=== PATIENT | male | born 1955 | race Caucasian/White ===

== ENCOUNTER 2017-12-03 21:16 | Emergency (ER) | payer MEDICAID ==
[~2017-12-03] VITALS: Ht 170.2 cm; Wt 77.1 kg
[2017-12-03] MEDS ORDERED: SODIUM CHLORIDE 0.9% 1,000 ML IVB ONE (21:30)
[2017-12-03 21:54] LABS: Basophils # (auto) 0.1 uL; Basophils % (auto) 0.8 % (0.0-2.0); Eosinophils # (auto) 0.1 uL; Eosinophils % (auto) 1.6 % (0.0-7.0); Hematocrit 40.4 % (41.0-53.0); Hemoglobin 13.9 g/dL (13.5-17.5); Lymphocytes # (auto) 2.5 uL; Lymphocytes % (auto) 31.2 % (10.0-50.0); Mean Corpuscular Hemoglobin 33.5 pg (28.0-32.0); Mean Corpuscular Hgb Conc. 34.4 g/dL (32.0-36.0); Mean Corpuscular Volume 97.3 fL (80.0-100.0); Monocytes # (auto) 0.6 uL; Monocytes % (auto) 7.2 % (0.0-12.0); Neutrophils # (auto) 4.7 uL; Neutrophils % (auto) 59.2 % (37.0-80.0); Nucleated Red Blood Cells % 0.1 %; Platelet Count (auto) 180 10^3/uL (140-450); Red Blood Cells 4.15 10^6/uL (4.5-5.90); Red Cell Distribution Width 16.1 % (11.8-14.3)
[2017-12-03 22:05] LABS: Albumin 3.7 g/dL (3.4-5.0); BUN/Creatinine Ratio 7.4; Calcium 8.6 mg/dL (8.5-10.1); Potassium 3.8 mmol/L (3.5-5.1)
[2017-12-03 22:14] LABS: Bilirubin, Total 0.4 mg/dL (0.2-1.0); Total Protein 7.8 g/dL (6.4-8.2)
[2017-12-04] MEDS ORDERED: THIAMINE INJ 100 MG, MULTIPLE VITAMIN 10 ML, FOLIC ACID 1 MG, MAGNESIUM SULF SDV 50% 8 ... IV STA ×10 (01:18→01:25)
[2017-12-04 06:01] VITALS: BP 110/68
[2017-12-04] MEDS ORDERED: THIAMINE INJ 100 MG, MULTIPLE VITAMIN 10 ML, FOLIC ACID 1 MG, MAGNESIUM SULF SDV 50% 8 ... IV SCH ×10 (12:00)
== END 2017-12-04 01:51 | disposition home or self-care (01) ==
LOC: EDBD 21:16 → EDUNIT# 21:16 → ER 21:16
DX: S16.1XXA Strain of muscle, fascia and tendon at neck level, initial encounter (principal); I10 Essential (primary) hypertension; G92 Toxic encephalopathy; F10.129 Alcohol abuse with intoxication, unspecified; E87.1 Hypo-osmolality and hyponatremia; W18.39XA Other fall on same level, initial encounter; Y93.89 Activity, other specified; Y99.8 Other external cause status; Y92.89 Other specified places as the place of occurrence of the external cause
CPT/HCPCS: 36415; 70450; 71101; 72125; 80053; 80320; 85025; 96365; 99285; J3411; J3475; J7030; 93005

== ENCOUNTER 2019-09-17 09:56 | Inpatient (IN) | payer MEDICAID ==
[~2019-09-17] VITALS: Ht 182.9 cm; Wt 92.7 kg
[2019-09-17] MEDS ORDERED: SODIUM CHLORIDE 0.9% 1,000 ML IV ONE ×2 (10:33)
[2019-09-17 11:24] LABS: Basophils # (auto) 0 10 ^3/uL (0-0.2); Basophils % (auto) 0.1 % (0.0-2.0); Eosinophils # (auto) 0 10 ^3/uL (0-0.8); Hematocrit 32.2 % (41.0-53.0); Hemoglobin 10.9 g/dL (13.5-17.5); Lymphocytes # (auto) 0.4 10 ^3/uL (0.4-5.4); Mean Corpuscular Hgb Conc. 33.7 g/dL (32.0-36.0); Mean Corpuscular Volume 97.9 fL (80.0-100.0); Monocytes # (auto) 0.3 10 ^3/uL (0-1.3); Monocytes % (auto) 2.6 % (0.0-12.0); Neutrophils # (auto) 11.2 10 ^3/uL (1.6-8.6); Neutrophils % (auto) 94.3 % (37.0-80.0); Nucleated Red Blood Cells % 0.1 %; Platelet Count (auto) 101 10^3/uL (140-450); Red Blood Cells 3.29 10^6/uL (4.5-5.90); Red Cell Distribution Width 19.4 % (11.8-14.3); White Blood Cell 11.9 10^3/uL (4.4-10.8)
[2019-09-17 11:40] LABS: INR 1.16 (0.9-1.15); Partial Thromboplastin Time 36.5 sec (23.64-32.05)
[2019-09-17 11:41] LABS: Albumin 1.9 g/dL (3.4-5.0); Calcium 8.5 mg/dL (8.5-10.1); Potassium 3.7 mmol/L (3.5-5.1)
[2019-09-17 11:43] LABS: Lactic Acid w/Reflex 5.1 mmol/L (0.4-2.0)
[2019-09-17 11:47] LABS: BUN/Creatinine Ratio 26.7; Bilirubin, Total 0.8 mg/dL (0.2-1.0); Total Protein 6.4 g/dL (6.4-8.2)
[2019-09-17] MEDS ORDERED: cefTRIAXone 1GM/50ML D5W 50 ML IV ONE (12:15)
[2019-09-17] MEDS ORDERED: SODIUM CHLORIDE 0.9% 2,000 ML IV ONE (12:15)
[2019-09-17] MEDS ORDERED: AZITHROMYCIN 500MG/ 250ML 250 ML IV ONE (12:15)
[2019-09-17 14:21] LABS: Urine Bacteria NONE SEEN /hpf (None Seen); Urine Blood Negative /uL (Negative); Urine Hyaline Cast FEW /lpf (0 - 2); Urine Specific Gravity 1.018 (1.001-1.035); Urine WBC 1 /hpf (0 - 3)
[2019-09-17] MEDS ORDERED: ONDANSETRON HCL 4 MG/2 ML VIAL IV ONE (15:45)
[2019-09-17] MEDS ORDERED: MORPHINE SULFATE 4 MG/ML SYR/VIAL IV ONE (15:45)
[2019-09-17] MEDS ORDERED: IOHEXOL 350 MG/ML 100ML IJ ONE (17:13)
[2019-09-17] MEDS ORDERED: VANCOMYCIN PER PHARMACY 0 MG IV SCH (17:15)
[2019-09-17] MEDS ORDERED: NITROGLYCERIN 0.4 MG SL TAB SL PRN (17:15)
[2019-09-17] MEDS ORDERED: ALBUTEROL SULF 2.5 MG/0.5ML(0.5%) NEB SOLN NEB PRN (17:15)
[2019-09-17] MEDS ORDERED: LACTULOSE 20Gm/30ML SOLN PO PRN (17:15)
[2019-09-17] MEDS ORDERED: PIPERACILLIN-TAZOB 3.375GM 100 ML IV ONE (17:15)
[2019-09-17] MEDS ORDERED: PROMETHAZINE HCL 25 MG/ML 1ML IV PRN (17:15)
[2019-09-17] MEDS ORDERED: ACETAMINOPHEN 500 MG TAB PO PRN (17:15)
[2019-09-17] MEDS ORDERED: methylPREDNISolone SOD SUCC 125 MG/2 ML VL IV ONE (17:15)
[2019-09-17] MEDS ORDERED: levoFLOXacin 500MG 100 ML IV ONE (17:15)
[2019-09-17] MEDS ORDERED: VANCOMYCIN 1GM/250ML 250 ML IV ONE (17:45)
[2019-09-17] MEDS: SODIUM CHLORIDE 0.9% 1,000 ML IV SCH (18:19)
[2019-09-17 18:26] LABS: Hematocrit 26.6 % (41.0-53.0)
[2019-09-17] MEDS: ALBUTEROL SULF 2.5 MG/0.5ML(0.5%) NEB SOLN NEB SCH (18:28)
[2019-09-17] MEDS: IPRATROPIUM BROM 0.5 MG/2.5ML INH SOL NEB SCH (18:28)
[2019-09-17 18:44] VITALS: BP 150/71
[2019-09-17 19:49] LABS: Alcohol, Urine < 3.0 mg/dL (0-5); Amphetamine Screen, Urine NEGATIVE (NEGATIVE); Barbiturate Scree,Urine NEGATIVE (NEGATIVE); Benzodiazephine Screen, Urine NEGATIVE (NEGATIVE); Cannabinoid Screen, Urine NEGATIVE (NEGATIVE); Cocaine Screen, Urine NEGATIVE (NEGATIVE); Opiate Scree,Urine NEGATIVE (NEGATIVE); Phencyclidine Screen, Urine NEGATIVE (NEGATIVE)
[2019-09-18] VITALS (8 sets, daily range): BP systolic 105–172; BP diastolic 55–88
[2019-09-18] MEDS: IPRATROPIUM BROM 0.5 MG/2.5ML INH SOL NEB SCH ×4 (00:17→22:26)
[2019-09-18] MEDS: ALBUTEROL SULF 2.5 MG/0.5ML(0.5%) NEB SOLN NEB SCH ×4 (00:17→22:26)
[2019-09-18 00:39] LABS: Hematocrit 28.6 % (41.0-53.0); Hemoglobin 9.5 g/dL (13.5-17.5)
--- NOTE | 2019-09-18 01:05 | NUR ---
[facility]mit to [facility] to [facility] via gurney on cardiac rehab nurse, and portable 02. Patient transfered to bed, connected to unit monitoring and oxygen, and weighed by bedscale. Patient oriented to Michael Hare, primary RN, unit, room, bed, and unit policies regarding patient care and visiting hours. All questions and concerns addressed, patient verbalized understanding.PHYSICAL assessment charted under interventions. NOTE:
[2019-09-18] MEDS: SODIUM CHLORIDE 0.9% 1,000 ML IV SCH ×3 (03:10→15:33)
--- NOTE | 2019-09-18 03:20 | NUR ---
PT SLEEPING BREATHING UNLABORED. CALL LIGHT WITHIN REACH.
--- NOTE | 2019-09-18 05:13 | NUR ---
GROUNDSKEEPER AT BEDSIDE. PT ALERT AND WILL CONTINUE TO MONITOR.
[2019-09-18] MEDS: methylPREDNISolone SOD SUCC 40 MG/ML VL IV SCH ×4 (05:28→20:50)
[2019-09-18] MEDS: VANCOMYCIN 1GM/250ML 250 ML IV SCH ×2 (05:28→17:11)
[2019-09-18] MEDS: PIPERACILLIN-TAZOB 3.375GM 100 ML IV SCH ×5 (06:00→23:08)
[2019-09-18 06:06] LABS: Basophils # (auto) 0 10 ^3/uL (0-0.2); Basophils % (auto) 0.2 % (0.0-2.0); Eosinophils # (auto) 0 10 ^3/uL (0-0.8); Hematocrit 25.8 % (41.0-53.0); Hemoglobin 9.1 g/dL (13.5-17.5); Lymphocytes # (auto) 0.2 10 ^3/uL (0.4-5.4); Lymphocytes % (auto) 3.4 % (10.0-50.0); Mean Corpuscular Hemoglobin 34.3 pg (28.0-32.0); Mean Corpuscular Hgb Conc. 35.2 g/dL (32.0-36.0); Mean Corpuscular Volume 97.5 fL (80.0-100.0); Monocytes # (auto) 0.1 10 ^3/uL (0-1.3); Monocytes % (auto) 1.5 % (0.0-12.0); Neutrophils # (auto) 5.2 10 ^3/uL (1.6-8.6); Neutrophils % (auto) 94.9 % (37.0-80.0); Platelet Count (auto) 78 10^3/uL (140-450); Red Blood Cells 2.65 10^6/uL (4.5-5.90); Red Cell Distribution Width 19.6 % (11.8-14.3); White Blood Cell 5.5 10^3/uL (4.4-10.8)
--- NOTE | 2019-09-18 06:09 | NUR ---
Respiratory note: PER CONNOR MONTGOMERY PT O2 WAS INCREASED FROM 2 L TO 6 L ABOUT 30 MIN PRIOR TO THIS RT INITIATING BREATHING TX @ 0604. WILL CONTINUE TO MONITOR PT AND KEEP SPO2 > 92%.
[2019-09-18 06:16] LABS: Potassium 3.4 mmol/L (3.5-5.1)
[2019-09-18 06:21] LABS: Albumin 1.5 g/dL (3.4-5.0); BUN/Creatinine Ratio 21.3; Calcium 7.6 mg/dL (8.5-10.1)
[2019-09-18 06:24] LABS: Bilirubin, Total 0.4 mg/dL (0.2-1.0); Total Protein 5.7 g/dL (6.4-8.2)
--- NOTE | 2019-09-18 06:48 | NUR ---
k level 3.4 this morning. hospitalist paged.
--- NOTE | 2019-09-18 07:30 | NUR ---
RECEIVED PATIENT SEMI FOWLERS IN BED, A/O TIMES 4, O2 AT 2L BY N/C, TURNED PATIENT IN THE BED WITH THE NOC SHIFT NURSE AND HIS O2 LEVEL DROPPED TO THE 80'S, O2 TURNED UP TO THE UP TO 5L, CARLSON TO GRAVITY, NS INFUSING INTO THE LAC 18G BY THE IV PUMP AT 100ML/HR,
--- NOTE | 2019-09-18 07:35 | NUR ---
O2 INCREASED BACK TO THE 90'S AND O2 DECREASED TO 2L BY N/C, PATIENT APPEARS TO DESAT WITH MOVEMENT
--- NOTE | 2019-09-18 07:40 | NUR ---
ENDORSED CARE TO DAY NURSE PT AWAKE. REPOSITIONED AND CALL LIGHT WITHIN REACH.
[2019-09-18] MEDS ORDERED: POTASSIUM CHL 20 Meq TABLET PO ONE ×2 (07:45→14:00)
--- NOTE | 2019-09-18 08:30 | NUR ---
WOKE PATIENT UP TO EAT BUT HE STATED HE WOULD EAT LATER HE IS REALLY TIRED
--- NOTE | 2019-09-18 09:29 | NUR ---
LYING IN BED WITH EYES CLOSED APPEARS TO BE SEEPING
[2019-09-18] MEDS ORDERED: levoFLOXacin 500MG 100 ML IV SCH (10:00)
--- NOTE | 2019-09-18 10:10 | NUR ---
WOKE PATIENT UP TO GIVE HIM HIS MEDICATIONS, EXPLAIN MEDICATIONS TO THE PATIENT REGARDING THE DOSAGE, USAGE AND THE SIDE EFFECTS, PATIENT VERBALIZED THAT HE UNDERSTOOD AND MEDS TAKEN ORDERED, BUT PATIENT CHOKED ON HALF OF A POTASSIUM PILL BUT EVENTUALLY GOT IT SWALLOWED ASK IF HE FELT LIKE ANYTHING WENT INTO HIS LUNGS AND STATED NO, SAYS HE COUGHED UP A LOT OF SPUTUM AND SPIT IT OUT
[2019-09-18] MEDS: PANTOPRAZOLE 40 MG TAB PO SCH (10:12)
--- NOTE | 2019-09-18 10:12 | NUR ---
PATIENT REFUSED PAIN MEDICATION WHEN OFFERED
--- NOTE | 2019-09-18 10:51 | NUR ---
ECHO BEING DONE
--- NOTE | 2019-09-18 11:15 | NUR ---
WOUND CARE NURSE IN TO SEE THE PATIENT AND TAKE PICTURES OF HIS WOUNDS
--- NOTE | 2019-09-18 11:30 | NUR ---
WOUND CARE NOTE: Wound care in to see patient per wound care request regarding multiple sores/lesions that are noted present on admission. Patient is 63 years old male with admitting diagnosis of Pneumonia,Pulmonary Edema, Possible Pulmonary hemorrhage. Patient is resting in SDU bed in Rm. 265. He's awake, alert and fully oriented. Patient reports of pain in every move. He's able to assist in turning and repositioning. His Daniel score is 14. Patent noted with multiple scabbed and open blisters all over his body. Some are scabbed and dry blister to his Rt lateral chest, arms, legs and feet. There's also dry red scattered lesion to his upper, medial and lower back. Multi open blisters noted to his bilateral buttocks and thighs with minimal serosanguineous drainage, no odor noted. Patient reported that he has had the wounds about "couple of weeks" history of David Kiran's Disease. Photograph of patient's wounds are taken for reference. Cleansed multiple open blisters to patient's buttocks and thighs and covered with Xeroform dressing. Applied new breathable care pads. Patient tolerated well. Patient offered with air mattress and wound care education provided. Patient refused and states that " I had those bed in [facility] and I don't like it". Patient education provided regarding benefits of air bed, but still refused. RN Brandi at bedside and aware. RECOMMENDATION: Daily/PRN dressing change to multi open wounds/blisters per MD order, Dietary consult for wounds, frequent turning and repositioning schedule as condition permits, redistribute pressure points with pillows, continue monitoring by wound care while patient is hospitalized. Addendum: 09/18/19 at 1339 by Ynes Dubon RN Amended: Links added.
--- NOTE | 2019-09-18 11:45 | NUR ---
Respiratory note: WOUND CARE WITH PT, UNABLE TO GIVE BREATHING TX AT THIS TIME. WILL TRY AGAIN LATER.
[2019-09-18] MEDS: traMADol HCL 50 MG TAB PO PRN ×3 (11:56→20:47)
--- NOTE | 2019-09-18 11:56 | NUR ---
MEDICATED FOR PAIN 12/08 WITH ULTRAM PO
--- NOTE | 2019-09-18 13:00 | NUR ---
DR BEATTY CALLED AND STATED TO MOVE THE PATIENT TO A NEGATIVE ISOLATION ROOM AND TO DO THE FREED VIRUS TEST
[2019-09-18] MEDS ORDERED: FUROSEMIDE 40 MG/4 ML VIAL IV ONE ×2 (13:15)
--- NOTE | 2019-09-18 13:40 | NUR ---
Respiratory note: SCHEDULED MED NEB TX NOT GIVEN DUE TO THIS RT BEING AT A . WILL CONTINUE TO MONITOR PT AND CONTINUE MED NEB TX'S ORDERED.
[2019-09-18] MEDS ORDERED: FUROSEMIDE 100 MG/10ML VIAL IV ONE (14:45)
--- NOTE | 2019-09-18 14:50 | NUR ---
REPORT GIVEN TO PAUL RYAN
--- NOTE | 2019-09-18 15:05 | NUR ---
PATIENT MOVED TO ROOM 261 NEGATIVE PRESSURE ROOM,
--- NOTE | 2019-09-18 15:06 | NUR ---
INFLUENZA A & B SWAB SENT. STREP SWAB SENT TO THE LAB.
--- NOTE | 2019-09-18 15:25 | NUR ---
assessment Patient is a 63 year old male who is alert and oriented. Prior to admission patient lived with a friend in a converted aul. Per patient they park the uhaul at the truck stop and have heat and lights. Per patient they have food, showers, bathroom and the truckers help them when needed. Patient does not consider himself homeless. I have offered patient homeless resources and usp. Patient has refused. Per patient he will return to his prior living arrangements post discharge. Patient does have a fww for home use. Patients PCP is Dr Perez. Patient feels safe returning to his prior living arrangements. I informed patient he has a right to speak to a social professionals regarding all care. I informed patient he has a right to participate in any and all discharge planning. Patient does not have a POA and advanced directive. I have offered patient information on POA and advanced directives. I informed the patient the advantages and benefits of having an Advanced Directive. Patient verbalized understanding and agreed to discharge plan. Addendum: 09/18/19 at 1533 by Elaine LIRA Amended: Links added.
--- NOTE | 2019-09-18 15:34 | NUR ---
SPOKE WITH MERY AND STATED SHE WOULD GET SOMEONE TO COME AND DO THE FREED VIRUS TESTING ON THE PATIENT
[2019-09-18] MEDS ORDERED: TIZA4CAP13 PO (16:50)
[2019-09-18] MEDS ORDERED: SERT-274 PO (16:51)
[2019-09-18] MEDS ORDERED: GABA300C10 PO (16:52)
[2019-09-18] MEDS ORDERED: PERCOT PO (16:53)
[2019-09-18] MEDS ORDERED: CYCL10TA6 PO (16:54)
[2019-09-18] MEDS ORDERED: ROPI1TAB2 PO (16:59)
[2019-09-18] MEDS: guaiFENesin-DM 100/10mg/5ml SYR PO PRN (20:47)
[2019-09-18] MEDS: ATORVASTATIN 20 MG TAB PO SCH (20:47)
[2019-09-18] MEDS: METOPROLOL TARTRATE 25 MG TAB PO SCH ×2 (20:48→23:08)
[2019-09-18] MEDS: TEMAZEPAM 15 MG CAP PO PRN (20:50)
--- NOTE | 2019-09-19 | NUR ---
Pt IV keeps alarming due to position of site. New IV started to left hand, 22g and is now infusing. Pt tolerated well. Noted right arm has some swelling. Will continue to monitor.
[2019-09-19] MEDS: traMADol HCL 50 MG TAB PO PRN ×3 (00:56→08:39)
[2019-09-19 04:00] VITALS: BP 158/62
--- NOTE | 2019-09-19 04:00 | NUR ---
Noted pt having pain. Also having desat issues. Repositioned nasal canula, encouraged to breath through nose and out through mouth. Sats still down to 88, called RT. Sats back up to normal by the time RT came. Oxymizer left for RN incase pt has further issues. Pain medication given per request. Will continue to monitor.
--- NOTE | 2019-09-19 04:42 | NUR ---
Opening Shift Note Assumed care of patient, awake and alert. No S/S of distress/SOB or severe pain. Instructed on POC and to call for assist PRN, will continue to monitor for changes and PRN. Pt educated on turning, positioning of arm for IV, and isolation precautions.
[2019-09-19] MEDS ORDERED: FUROSEMIDE 40 MG/4 ML VIAL IV SCH (06:00)
[2019-09-19] MEDS: PIPERACILLIN-TAZOB 3.375GM 100 ML IV SCH ×3 (06:00→17:32)
[2019-09-19] MEDS: VANCOMYCIN 1GM/250ML 250 ML IV SCH ×2 (06:36→16:52)
[2019-09-19 06:54] LABS: Basophils # (auto) 0 10 ^3/uL (0-0.2); Eosinophils # (auto) 0 10 ^3/uL (0-0.8); Hemoglobin 8.4 g/dL (13.5-17.5); Lymphocytes # (auto) 0.3 10 ^3/uL (0.4-5.4); Mean Corpuscular Hgb Conc. 34.3 g/dL (32.0-36.0); Monocytes # (auto) 0.2 10 ^3/uL (0-1.3); Neutrophils # (auto) 5.6 10 ^3/uL (1.6-8.6); Nucleated Red Blood Cells % 0.1 %; White Blood Cell 6.2 10^3/uL (4.4-10.8)
[2019-09-19 06:56] LABS: Basophils % (auto) 0.1 % (0.0-2.0); Hematocrit 24.5 % (41.0-53.0); Lymphocytes % (auto) 5.3 % (10.0-50.0); Mean Corpuscular Hemoglobin 33.4 pg (28.0-32.0); Mean Corpuscular Volume 97.3 fL (80.0-100.0); Monocytes % (auto) 3.1 % (0.0-12.0); Neutrophils % (auto) 91.5 % (37.0-80.0); Platelet Count (auto) 77 10^3/uL (140-450); Red Blood Cells 2.52 10^6/uL (4.5-5.90); Red Cell Distribution Width 18.9 % (11.8-14.3)
[2019-09-19 07:15] LABS: Albumin 1.8 g/dL (3.4-5.0); Calcium 7.8 mg/dL (8.5-10.1); Magnesium 1.9 mg/dL (1.6-2.6)
[2019-09-19 07:19] LABS: Bilirubin, Total 0.4 mg/dL (0.2-1.0); Total Protein 5.5 g/dL (6.4-8.2)
[2019-09-19 07:21] LABS: INR 1.2 (0.9-1.15)
[2019-09-19] MEDS: ALBUTEROL SULF 2.5 MG/0.5ML(0.5%) NEB SOLN NEB SCH ×3 (07:25→22:14)
[2019-09-19] MEDS: IPRATROPIUM BROM 0.5 MG/2.5ML INH SOL NEB SCH ×3 (07:25→22:14)
[2019-09-19 07:32] LABS: Potassium 2.9 mmol/L (3.5-5.1)
[2019-09-19 07:40] VITALS: BP 179/79
[2019-09-19] MEDS: SODIUM CHLORIDE 0.9% 1,000 ML IV SCH (07:55)
--- NOTE | 2019-09-19 08:15 | NUR ---
Opening Shift Note Assumed care of patient, awake and alert, lying on the bed after cleaning, changing linen. No S/S of distress/SOB, on O2 NC 5 LPM, pain when moving or touching, pain medication given by strip tank tendershift production associate. Instructed on POC and to call for assist PRN, will continue to monitor for changes Q1hr and PRN. Patient contact isolation for +MRSA NARES, and Droplet isolation in negative pressure room for R/O Covid-19, pending the result, patient made aware about the plan.
--- NOTE | 2019-09-19 08:39 | NUR ---
Pt pulled out IV just before change of shift and vanco did not infuse and leaked into bedding. New IV placed by Mau RN. Linens changed and xeroform dressing in place to buttocks. New vanco infusing. Report given to AM shift, care endorsed.
--- NOTE | 2019-09-19 08:40 | NUR ---
Potassium 2.9, gave potassium 25 mEq as schedule, will call MD for lab result.
--- NOTE | 2019-09-19 08:50 | NUR ---
IV insertion IV access obtained, via clean sterile technique by inserting 22 gauge catheter at right forearm after 1 attempt. IV secured properly. No trauma to site. Patient tolerated procedure well.
[2019-09-19] MEDS: PANTOPRAZOLE 40 MG TAB PO SCH (09:24)
[2019-09-19] MEDS: methylPREDNISolone SOD SUCC 40 MG/ML VL IV SCH ×2 (09:24→20:58)
[2019-09-19] MEDS: ASPirin-EC 81 mg tab PO SCH (09:25)
[2019-09-19] MEDS: METOPROLOL TARTRATE 25 MG TAB PO SCH ×2 (09:25→20:56)
--- NOTE | 2019-09-19 09:45 | NUR ---
Assist patient with breakfast, patient had a couple bit of bread and milk, refused to finish the rest, stated that will try later. No N/V noted.
[2019-09-19] MEDS ORDERED: POTASSIUM EFFERVESENT TAB 25 MEQ GT SCH (10:00)
[2019-09-19] MEDS ORDERED: FUROSEMIDE 20 MG/2 ML VIAL IV SCH (10:00)
--- NOTE | 2019-09-19 10:15 | NUR ---
Patient went back to bed by holding walker and push himself back to bed, lying on the bed, tolerated well. Patient agreed with the plan that will sit on the chair for Lunch, HR 110/min, room air O2 saturation 100%, RR 16-20/min, no coughing, N/V noted.
--- NOTE | 2019-09-19 10:36 | NUR ---
Paged Dr. Dunn and Dr. Gomes, waiting MD to call back. Regarding IV, Lasix, and Lab result. Per Supervisor Ornamental Ironworking, Dr. Ramirez covered for Dr. Dunn. Will wait Dr. Gomes to call back.
--- NOTE | 2019-09-19 11:29 | NUR ---
Dr. Gomes at the bedside, informed MD about lab results and recommendation from Dr. Dunn, received order for Potassium 40 mEq oral, continue Lasix 40 mg IV BID, off IV hydration, changed pain medication to Percocet. MD reviewed Document from [facility]. Patient made aware about the plan of care and new orders.
[2019-09-19] MEDS ORDERED: POTASSIUM CHL 20 Meq TABLET PO ONE ×2 (11:30→18:00)
[2019-09-19] MEDS ORDERED: FUROSEMIDE 100 MG/10ML VIAL IV ONE (11:30)
[2019-09-19 11:58] VITALS: BP 170/69
--- NOTE | 2019-09-19 12:00 | NUR ---
Percocet given for pain management, still cannot turn position due to severe pain, will wait until Percocet kick in. No N/V noted, patient had 50% of Oatmeal, 1 cup of apple sauce. Will continue to monitor and care.
--- NOTE | 2019-09-19 12:10 | NUR ---
Reverberatory Furnace Operator at the beside, made aware that patient didn't bring Denture with him, recommend Vitamin C 500 mg PO BID and Multi vitamin PO Daily for nutrition and wound healing, will carlos diet to mechanical soft and chopped fine, will continue to monitor for nutrition intake.
[2019-09-19] MEDS: OXYCODONE W/ ACETAMINOPHEN 5/325MG TABLET PO PRN ×3 (12:12→20:55)
[2019-09-19] MEDS: MULTIPLE VITAMIN TAB PO SCH (12:23)
--- NOTE | 2019-09-19 12:30 | NUR ---
Patient able to take a nap after Percocet given, HR 65-75 /min, BP 164/65 mmHg, will continue to monitor and care.
--- NOTE | 2019-09-19 13:20 | NUR ---
SBP 160-180 mmHg, DBP 60-70 mmHg, paged Dr. Gomes to call back regarding High BP.
--- NOTE | 2019-09-19 13:42 | NUR ---
Dr. Washington at the bedside, still waiting for the Covid-19 result, will continue treatment and monitor.
[2019-09-19] MEDS ORDERED: hydrALAZINE HCL 20 MG/ML VL IV PRN (13:45)
--- NOTE | 2019-09-19 14:13 | NUR ---
Nutrition Assessment Notes Please refer to link for full assessment notes. Est energy needs: 5729-6399 kcals (23-25 kcal/kgBW) Est protein needs: 102-127 gms/day (1.2-1.5 gm/kgBW) d/t pt wounds Will continue to monitor and reassess prn. Addendum: 09/19/19 at [address] Amended: Links added.
--- NOTE | 2019-09-19 14:25 | NUR ---
Patient took IV at left AC out, no bleeding noted. IV insertion IV access obtained, via clean sterile technique by inserting 22 gauge catheter at left forearm after 1 attempt. IV secured properly. No trauma to site. Patient tolerated procedure well.
--- NOTE | 2019-09-19 14:30 | NUR ---
Assisted patient with Lunch, patient had 1 orange juice and 5 bites of mash potato and soup.
--- NOTE | 2019-09-19 14:48 | NUR ---
BP 110/56 mmHg after Hydralazine given as ordered for SBP>150 mmHg, will continue to monitor and care.
[2019-09-19 15:53] VITALS: BP 118/54
[2019-09-19] MEDS: FUROSEMIDE 100 MG/10ML VIAL IV SCH (17:33)
--- NOTE | 2019-09-19 17:56 | NUR ---
Paged Hospitalist finance consultant for Potassium 3.1, waiting MD to call back.
[2019-09-19] MEDS ORDERED: POTASSIUM CHL 10 Meq TABLET PO ONE (18:00)
--- NOTE | 2019-09-19 18:00 | NUR ---
Received a call back from Dr. Prasad, informed ND for potassium 3.1, received order for potassium 50 mEq PO once, will carry out, patient made aware.
--- NOTE | 2019-09-19 18:31 | NUR ---
Dinner tray provided, assisted with dinner, patient had 1 cup of pudding, 10 bites of dinner tray, no N/V noted, stated that doesn't like the food on the tray because it tasted less.
[2019-09-19 20:00] VITALS: BP 111/53
[2019-09-19] MEDS: guaiFENesin-DM 100/10mg/5ml SYR PO PRN (20:55)
[2019-09-19] MEDS: ASCORBIC ACID 500 MG TAB PO SCH (20:57)
[2019-09-19] MEDS: ATORVASTATIN 20 MG TAB PO SCH (20:57)
[2019-09-19] MEDS: MUPIROCIN 2% OINT 15gm or 22gm EACHNOSTRI SCH (20:58)
[2019-09-19] MEDS: POTASSIUM CHL 20 Meq TABLET PO SCH (20:58)
[2019-09-19] MEDS: TEMAZEPAM 15 MG CAP PO PRN (20:59)
[2019-09-20] VITALS: BP 150/57
[2019-09-20] MEDS: PIPERACILLIN-TAZOB 3.375GM 100 ML IV SCH ×5 (01:18→23:41)
[2019-09-20] MEDS: OXYCODONE W/ ACETAMINOPHEN 5/325MG TABLET PO PRN ×5 (01:18→21:17)
[2019-09-20 04:00] VITALS: BP 150/57
[2019-09-20] MEDS: VANCOMYCIN 1GM/250ML 250 ML IV SCH ×2 (05:08→17:35)
[2019-09-20] MEDS: FUROSEMIDE 100 MG/10ML VIAL IV SCH ×2 (05:09→17:30)
[2019-09-20] MEDS: ALBUTEROL SULF 2.5 MG/0.5ML(0.5%) NEB SOLN NEB SCH ×3 (06:54→22:31)
[2019-09-20] MEDS: IPRATROPIUM BROM 0.5 MG/2.5ML INH SOL NEB SCH ×3 (06:54→22:31)
--- NOTE | 2019-09-20 07:00 | NUR ---
Pt states does not feel well today and feels worse than when he arrived. Severe pain to buttocks and legs. Specialty bed recommended for wound care consult. Unable to draw labs, multiple tries. Midline requested and ordered, no PICC line nurse automotive fuel systems converter today. Labs endorsed to AM shift, care endorsed. New Xeroform applied to buttocks, skin open and bleeding underneath. Pt has severe pain and even worse with screaming when being turned. Report given to AM shift, care endorsed.
--- NOTE | 2019-09-20 07:12 | NUR ---
Respiratory note: TITRATED FIO2 TO 2L.
--- NOTE | 2019-09-20 07:30 | NUR ---
REPORT RECEIVED ASSUMING CARE
[2019-09-20 07:50] VITALS: BP 128/61
--- NOTE | 2019-09-20 09:30 | NUR ---
ASSESSMENT COMPLETED, LABS DRAWN AND SENT TO LAB
--- NOTE | 2019-09-20 09:40 | NUR ---
REFUSED TO BE TURNED AT THIS TIME DUE TO PAIN C/O 12/08. PERCOCET GIVEN WITH AM MEDS. WILL CONT TO ENCOURAGE REPOSITIONING TO PREVENT FURTHER SKIN BREAKDOWN
[2019-09-20] MEDS: PANTOPRAZOLE 40 MG TAB PO SCH (09:41)
[2019-09-20] MEDS: POTASSIUM CHL 20 Meq TABLET PO SCH ×2 (09:41→21:16)
[2019-09-20] MEDS: MUPIROCIN 2% OINT 15gm or 22gm EACHNOSTRI SCH ×2 (09:41→21:18)
[2019-09-20] MEDS: ASCORBIC ACID 500 MG TAB PO SCH ×2 (09:41→21:11)
[2019-09-20] MEDS: methylPREDNISolone SOD SUCC 40 MG/ML VL IV SCH (09:41)
[2019-09-20] MEDS: MULTIPLE VITAMIN TAB PO SCH (09:41)
[2019-09-20] MEDS: ASPirin-EC 81 mg tab PO SCH (09:41)
[2019-09-20] MEDS: METOPROLOL TARTRATE 25 MG TAB PO SCH ×2 (09:42→21:16)
[2019-09-20 09:43] LABS: Basophils # (auto) 0 10 ^3/uL (0-0.2); Basophils % (auto) 0.1 % (0.0-2.0); Eosinophils # (auto) 0 10 ^3/uL (0-0.8); Hemoglobin 9.6 g/dL (13.5-17.5); Lymphocytes # (auto) 0.4 10 ^3/uL (0.4-5.4); Lymphocytes % (auto) 4.8 % (10.0-50.0); Mean Corpuscular Hemoglobin 33.1 pg (28.0-32.0); Mean Corpuscular Hgb Conc. 34.2 g/dL (32.0-36.0); Mean Corpuscular Volume 96.9 fL (80.0-100.0); Monocytes # (auto) 0.4 10 ^3/uL (0-1.3); Monocytes % (auto) 4.3 % (0.0-12.0); Neutrophils # (auto) 7.7 10 ^3/uL (1.6-8.6); Neutrophils % (auto) 90.8 % (37.0-80.0); Platelet Count (auto) 94 10^3/uL (140-450); Red Blood Cells 2.89 10^6/uL (4.5-5.90); Red Cell Distribution Width 19.1 % (11.8-14.3); White Blood Cell 8.4 10^3/uL (4.4-10.8)
--- NOTE | 2019-09-20 10:00 | NUR ---
DR BEATTY AT BEDSIDE NO NEW ORDERS, AWARE LABS WERE JUST DRAWN BY RN AND SENT TO LAB
[2019-09-20 10:05] LABS: Albumin 2.1 g/dL (3.4-5.0); Calcium 8.2 mg/dL (8.5-10.1); Potassium 3.5 mmol/L (3.5-5.1)
[2019-09-20 10:08] LABS: BUN/Creatinine Ratio 23.8; Bilirubin, Total 0.6 mg/dL (0.2-1.0); Total Protein 6.1 g/dL (6.4-8.2)
[2019-09-20] MEDS ORDERED: MAGNESIUM SULFATE 1GM/100ML 100 ML IV ONE (11:15)
--- NOTE | 2019-09-20 11:20 | NUR ---
PER DR BEATTY KEEP NPO AFTER MIDNIGHT FOR POSSIBLE STRESS TEST IN AM
[2019-09-20 11:50] VITALS: BP 141/57
--- NOTE | 2019-09-20 12:10 | NUR ---
RN REPOSITIONED PATIENT ON RIGHT SIDE SLIGHTLY WITH PILLOW UNDER LOWER BACK/BUTTOCKS, PATIENT REFUSED COMPLETE TURN.
--- NOTE | 2019-09-20 13:40 | NUR ---
PAIN MEDICINE GIVEN FOR C/O 02/07 PAIN "EVERYWHERE" Addendum: 09/20/19 at 1619 by Espinoza Mcclellan RN REFUSED TO TURN AT THIS TIME
--- NOTE | 2019-09-20 15:30 | NUR ---
ATTEMPTED TO REFUSE TURN BUT RN EDUCATED PATIENT ON PREVENTING FURTHER SKIN BREAKDOWN. PATIENT AGREED TO TURN AND TOLERATED FAIRLY AFTER TURNING ON RIGHT SIDE.
[2019-09-20 15:40] VITALS: BP 113/42
--- NOTE | 2019-09-20 17:40 | NUR ---
PAIN MEDICINE GIVEN ORDERED FOR C/O 10/08 PAIN
[2019-09-20 20:00] VITALS: BP 153/54
[2019-09-20] MEDS: ATORVASTATIN 20 MG TAB PO SCH (21:16)
[2019-09-20] MEDS: TEMAZEPAM 15 MG CAP PO PRN (21:17)
--- NOTE | 2019-09-20 22:31 | NUR ---
Respiratory note: at bedside for med claudette hurd.
[2019-09-20] MEDS ORDERED: MORPHINE SULF INJ 2 MG/ML SYRINGE 1ML IV PRN (23:15)
[2019-09-20] MEDS: MORPHINE SULF INJ 2 MG/ML SYRINGE 1ML IV PRN (23:41)
[2019-09-21] VITALS (7 sets, daily range): BP systolic 114–136; BP diastolic 52–66
--- NOTE | 2019-09-21 02:33 | NUR ---
Pt remains stable this shift. However, pt has severe pain. Small movements on his own in bed. Encouraged to move and change positions as much as possible. Refuses turning from staff. Pt educated on pressure ulcers and prevention. AM shift informed me that pt refused specialty bed previously. Pt now states he would accept the special bed but ui programmer was not aware that he had changed his mind. Will inform ui programmer in AM about needing new mattress for the David Kiran Syndrome skin issues. Will continue to monitor.
[2019-09-21] MEDS: OXYCODONE W/ ACETAMINOPHEN 5/325MG TABLET PO PRN ×3 (02:52→20:57)
[2019-09-21] MEDS: MORPHINE SULF INJ 2 MG/ML SYRINGE 1ML IV PRN (04:42)
[2019-09-21] MEDS: PIPERACILLIN-TAZOB 3.375GM 100 ML IV SCH ×4 (06:49→23:42)
[2019-09-21] MEDS: VANCOMYCIN 1GM/250ML 250 ML IV SCH (06:49)
[2019-09-21] MEDS: ALBUTEROL SULF 2.5 MG/0.5ML(0.5%) NEB SOLN NEB SCH ×2 (07:35→20:06)
[2019-09-21] MEDS: IPRATROPIUM BROM 0.5 MG/2.5ML INH SOL NEB SCH ×2 (07:35→20:07)
[2019-09-21 07:59] LABS: Magnesium 1.8 mg/dL (1.6-2.6); Potassium 3.7 mmol/L (3.5-5.1)
--- NOTE | 2019-09-21 08:00 | NUR ---
STRESS TEST HELD NOC NURSE SPOKE TO NUCLEAR MED. RE; PATIENTS PAIN AND UNABLE TO TOLERATE ACTIVITY. STRESS TEST HELD.
--- NOTE | 2019-09-21 08:06 | NUR ---
Pt stable this shift but has increased pain this shift. Morphine 2mg IV q4hrs was ordered for severe pain. Pt has been NPO this morning since MN for Stress test cancelled due to R/O Covid-19 and raw, bleeding skin on buttocks and thighs. Late tray ordered for breakfast. Rinse bath in bed and linens changed. New Xeroform placed on buttocks. Report given to AM shift, care endorsed.
[2019-09-21] MEDS ORDERED: ADENOSINE 79 MG in GIVE UN-DILUTED 0 ML IV STA (08:20)
[2019-09-21 08:50] LABS: Hepatitis B Surface Antibody Negative
[2019-09-21 09:19] LABS: Hepatitis A Total Antibody Negative
--- NOTE | 2019-09-21 09:45 | NUR ---
NUTRITION PATIENT ATE 75% OF BREAKFAST TRAY. PATIENT ABLE TO FEED SELF WITH LEFT ARM HIS RIGHT ARM IS SIGNIFICANTLY WEAK. PT TOLERATED WELL.
[2019-09-21] MEDS: POTASSIUM CHL 20 Meq TABLET PO SCH (09:46)
[2019-09-21] MEDS: ASCORBIC ACID 500 MG TAB PO SCH ×2 (09:46→20:56)
[2019-09-21] MEDS: FUROSEMIDE 100 MG/10ML VIAL IV SCH (09:46)
[2019-09-21] MEDS: PANTOPRAZOLE 40 MG TAB PO SCH (09:46)
[2019-09-21] MEDS: ASPirin-EC 81 mg tab PO SCH (09:47)
[2019-09-21] MEDS: MULTIPLE VITAMIN TAB PO SCH (09:47)
[2019-09-21] MEDS: MUPIROCIN 2% OINT 15gm or 22gm EACHNOSTRI SCH ×2 (09:47→20:55)
[2019-09-21] MEDS: methylPREDNISolone SOD SUCC 40 MG/ML VL IV SCH (09:47)
[2019-09-21] MEDS: METOPROLOL TARTRATE 25 MG TAB PO SCH ×2 (10:00→20:56)
--- NOTE | 2019-09-21 10:00 | NUR ---
PAIN Pain 4/10 to skin throughout and worse to back. Site noted to have multiple reddened open blistered areas. Facial grimicing and gaurding noted during any activity/ movement. Pt refusing to turn at this time due to pain. Patient medicated for comfort. Will attempt to reposition post medication administration.
[2019-09-21 10:09] LABS: Hepatitis B Core Total AB Negative; Hepatitis B Surface Antigen Negative (Negative); Hepatitis C Antibody Negative (Negative)
[2019-09-21] MEDS ORDERED: MAGNESIUM SULFATE 1GM/100ML 100 ML IV ONE (10:15)
[2019-09-21] MEDS ORDERED: POTASSIUM CHL 20 Meq TABLET PO ONE (10:15)
--- NOTE | 2019-09-21 11:33 | NUR ---
ELIMINATION PT CALLED REQUESTING BEDPAN. BEDPAN APPLIED BUT NOTED TO HAVE SEVERE DISCOMFORT WHILE BEING PLACED. PATIENT HAD A MODERATE, BROWN SOFT BM. SKIN CARE PROVIDED DIRECTED BY WOUND CARE. PATIENT AT TIME WAS TRANSFERRED TO SPECIALTY BED. DR. HOLLAND PRESENT DURING TRANSFER. SHOWN SKIN TO POSTERIOR SITE/SACRUM. NEW ORDERS IN PLACE.
--- NOTE | 2019-09-21 12:24 | NUR ---
STRESS TEST IN A.M. HOSPITALIST RECOMMENDING FOR PATIENT TO GET MEDICATED FOR PAIN AND GO DOWN FOR STRESS TEST. MD NOTIFIED PATIENT AT THIS TIME IS REQUESTING TO GET PAIN MANAGEMENT TODAY AND POSSIBLY ATTEMPT TOMORROW ONCE HE IS MORE MOBILE. VERBALIZED UNDERSTANDING. STRESS TEST TO BE CHANGED TO A.M. . MSG LEFT WITH NUC MED.
[2019-09-21] MEDS: HYDROmorphone HCL 2 MG/ML VL IV PRN ×3 (13:47→22:46)
--- NOTE | 2019-09-21 14:25 | NUR ---
ACTIVITY PATIENT ASSISTED BY P.T TO SIT AT EDGE OF BED. PATIENT NEEDS ENCOURAGEMENT AND PHYSICAL SUPPORT AT FIRST BUT HE SAT UP WITH TIME HE BEGAN TO BECOME MOTIVATED HIM SELF TO SIT WITH MINIMAL SUPPORT. PT WAS FOUND TO BE IN PAIN. PO PRN MEDICATION GIVEN. SEE P.T NOTES.
--- NOTE | 2019-09-21 16:04 | NUR ---
STRESS RADHA- UNABLE TO UNDERGO NUCLEAR STRESS TEST DUE TO POSSIBLE COVID-19. WILL ATTEMPT AGAIN TOMORROW ON 09/22/2019.
--- NOTE | 2019-09-21 16:22 | NUR ---
PATIENT RESTING AT THIS TIME VSS. WILL CONTINUE TO MONITOR.
--- NOTE | 2019-09-21 18:45 | NUR ---
ELIMINATION PATIENT HAD A LARGE. BROWN, STOOL VIA BEDPAN. SKIN CLEANSED. DRESSING TO SACRUM COMPLETED ORDERED. PRN MEDICATION GIVEN FOR PAIN DUE TO ACTIVITY/ DRESSING CHANGE.
--- NOTE | 2019-09-21 20:00 | NUR ---
SHIFT OPENING NOTE RECEIVED PATIENT AWAKE, ALERT AND ORIENTED X4. NO SOB OR DISTRESS NOTED. ON 3L NC. COMPLAINING 8/10 BACK PAIN. WILL MEDICATE WHEN DUE. CARLSON CATH DRAINING YELLOW URINE TO GRAVITY. ON SPECIALTY AIR MATTRESS. PHYSICAL ASSESSMENT COMPLETED, SEE INTERVENTIONS. INSTRUCTED ON POC AND TO CALL FOR ASSIST NEEDED. BED IS IN THE LOWEST POSITION WITH SIDE RAILS UP X2, CALL LIGHT IS WITHIN REACH.
[2019-09-21] MEDS: ATORVASTATIN 20 MG TAB PO SCH (20:55)
[2019-09-21] MEDS ORDERED: VANCOMYCIN 1GM/250ML 250 ML IV SCH (22:00)
[2019-09-22] VITALS: BP 127/65
[2019-09-22] MEDS: ALBUTEROL SULF 2.5 MG/0.5ML(0.5%) NEB SOLN NEB SCH ×4 (00:43→19:15)
[2019-09-22] MEDS: IPRATROPIUM BROM 0.5 MG/2.5ML INH SOL NEB SCH ×4 (00:44→19:15)
--- NOTE | 2019-09-22 01:45 | NUR ---
ROUNDS PATIENT IS QUIETLY LAYING IN BED SLEEPING. NO SOB, DISTRESS OR PAIN NOTED. WILL CONTINUE TO CLOSELY MONITOR.
[2019-09-22] MEDS: OXYCODONE W/ ACETAMINOPHEN 5/325MG TABLET PO PRN ×3 (02:32→20:01)
--- NOTE | 2019-09-22 02:32 | NUR ---
PAIN: Pt c/o pain over body at level 9/10. Pt requesting medication for pain. Pt medicated w/ Percocet 5/325mg PO as per order. To continue to monitor pt.
[2019-09-22] MEDS: HYDROmorphone HCL 2 MG/ML VL IV PRN ×4 (03:45→22:49)
[2019-09-22 04:00] VITALS: BP 134/58
--- NOTE | 2019-09-22 04:00 | NUR ---
MORNING HYGIENE CARE FULL BED BATH PERFORMED WITH WARM SOAPY WASH CLOTHES. GOWN CHANGED. FULL LINEN CHANGED. PATIENT REPOSITIONED FOR COMFORT. TOLERATED IT WELL.
[2019-09-22] MEDS: PIPERACILLIN-TAZOB 3.375GM 100 ML IV SCH ×4 (05:17→23:46)
--- NOTE | 2019-09-22 06:50 | NUR ---
END OF SHIFT PATIENT LAYING IN BED AWAKE. JUST MEDICATED FOR PAIN WITH PERCOCET. NO DISTRESS NOTED. WILL GIVE REPORT AND ENDORSE CARE TO THE DAY SHIFT RN.
[2019-09-22 08:00] VITALS: BP 119/55
--- NOTE | 2019-09-22 08:00 | NUR ---
Opening Shift Note Assumed care of patient, awake and alert. No S/S of distress/SOB or pain. Patient saturation 94% at 3 LPM oxygen. Patient scheduled for Cardiolyte stress test today, per Nuclear Med staff Tino patient can eat breakfast as long as no coffee. See interventions for complete assessment. Bed locked on low position, side rails up x2, bed alarms on at all times, call maradiaga within reach, instructed to call for needed assistance. Will continue to monitor for changes Q1hr and PRN.
--- NOTE | 2019-09-22 09:45 | NUR ---
David PT at bedside, patient able to tolerate ROM exercises.
[2019-09-22] MEDS: VANCOMYCIN 1GM/250ML 250 ML IV SCH (10:30)
[2019-09-22] MEDS: MUPIROCIN 2% OINT 15gm or 22gm EACHNOSTRI SCH ×2 (10:30→20:04)
--- NOTE | 2019-09-22 10:30 | NUR ---
Patient had large amount of soft, brown bowel movement. Perineal care rendered. Skin integrity assessed for any changes. Open blisters cleansed with sterile water, pat dried and xerofoam placed. Patient's gown and linens changed. Patient repositioned for comfort.
[2019-09-22] MEDS: methylPREDNISolone SOD SUCC 40 MG/ML VL IV SCH (10:31)
[2019-09-22] MEDS: ASCORBIC ACID 500 MG TAB PO SCH ×2 (10:31→20:01)
[2019-09-22] MEDS: ASPirin-EC 81 mg tab PO SCH (10:31)
[2019-09-22] MEDS: FUROSEMIDE 100 MG/10ML VIAL IV SCH (10:31)
[2019-09-22] MEDS: METOPROLOL TARTRATE 25 MG TAB PO SCH ×2 (10:32→20:04)
[2019-09-22] MEDS: POTASSIUM CHL 20 Meq TABLET PO SCH (10:32)
[2019-09-22] MEDS: MULTIPLE VITAMIN TAB PO SCH (10:32)
[2019-09-22] MEDS: PANTOPRAZOLE 40 MG TAB PO SCH (10:33)
--- NOTE | 2019-09-22 10:55 | NUR ---
Dr Gomes at bedside, updated on patient's status. Informed of patient's sever RT arm weakness. verbalized understanding. Will place neurology consult.
--- NOTE | 2019-09-22 15:19 | NUR ---
Dr Washington at bedside, updated on patient's status. Patient seen and examined. Will carry out new orders.
[2019-09-22] MEDS: FERROUS SULFATE 325 MG TAB PO SCH (17:07)
--- NOTE | 2019-09-22 17:20 | NUR ---
Paged Dr Landry regarding neuro consult, awaiting call back.
[2019-09-22 20:00] VITALS: BP 111/53
--- NOTE | 2019-09-22 20:00 | NUR ---
SHIFT OPENING NOTE RECEIVED PATIENT AWAKE, ALERT AND ORIENTED X4. NO SOB OR DISTRESS NOTED. ON 2L NC. COMPLAINING 6/10 BACK PAIN. WILL MEDICATE WHEN DUE. CARLSON CATH DRAINING YELLOW URINE TO GRAVITY. ON SPECIALTY AIR MATTRESS. PHYSICAL ASSESSMENT COMPLETED, SEE INTERVENTIONS. INSTRUCTED ON POC AND TO CALL FOR ASSIST NEEDED. BED IS IN THE LOWEST POSITION WITH SIDE RAILS UP X2, CALL LIGHT IS WITHIN REACH.
[2019-09-22] MEDS: ATORVASTATIN 20 MG TAB PO SCH (20:01)
--- NOTE | 2019-09-22 21:20 | NUR ---
DR. LOPEZ AT BEDSIDE ASSESSING PATIENT
[2019-09-22] MEDS: TEMAZEPAM 15 MG CAP PO PRN (21:34)
[2019-09-23] VITALS (7 sets, daily range): BP systolic 102–122; BP diastolic 55–62
[2019-09-23] MEDS: KETOROLAC TROMETH 15 mg/ml 1ML VL IV PRN (00:13)
[2019-09-23] MEDS: IPRATROPIUM BROM 0.5 MG/2.5ML INH SOL NEB SCH ×5 (01:06→23:56)
[2019-09-23] MEDS: ALBUTEROL SULF 2.5 MG/0.5ML(0.5%) NEB SOLN NEB SCH ×5 (01:06→23:56)
[2019-09-23] MEDS: PIPERACILLIN-TAZOB 3.375GM 100 ML IV SCH ×3 (04:54→17:56)
[2019-09-23] MEDS: HYDROmorphone HCL 2 MG/ML VL IV PRN ×4 (04:55→20:30)
--- NOTE | 2019-09-23 05:00 | NUR ---
MORNING HYGIENE CARE FULL BED BATH PERFORMED WITH WARM SOAPY WASH CLOTHES. GOWN CHANGED. FULL LINEN CHANGED. PATIENT REPOSITIONED FOR COMFORT. TOLERATED IT WELL.
[2019-09-23 05:17] LABS: Basophils # (auto) 0 10 ^3/uL (0-0.2); Basophils % (auto) 0.2 % (0.0-2.0); Eosinophils # (auto) 0.1 10 ^3/uL (0-0.8); Eosinophils % (auto) 0.8 % (0.0-7.0); Hematocrit 32.3 % (41.0-53.0); Lymphocytes # (auto) 0.9 10 ^3/uL (0.4-5.4); Mean Corpuscular Hgb Conc. 34.2 g/dL (32.0-36.0); Mean Corpuscular Volume 96.5 fL (80.0-100.0); Monocytes # (auto) 0.4 10 ^3/uL (0-1.3); Neutrophils # (auto) 8.6 10 ^3/uL (1.6-8.6); Platelet Count (auto) 102 10^3/uL (140-450); Red Blood Cells 3.35 10^6/uL (4.5-5.90); Red Cell Distribution Width 19.2 % (11.8-14.3)
[2019-09-23 05:41] LABS: BUN/Creatinine Ratio 30.3; Calcium 8.6 mg/dL (8.5-10.1); Potassium 3.4 mmol/L (3.5-5.1)
[2019-09-23 05:48] LABS: Folate (Folic Acid) 4.16 ng/mL (5.38-24)
--- NOTE | 2019-09-23 07:00 | NUR ---
ND OF SHIFT PATIENT LAYING IN BED AWAKE. NO DISTRESS NOTED. WILL GIVE REPORT AND ENDORSE CARE TO THE DAY SHIFT RN.
--- NOTE | 2019-09-23 07:30 | NUR ---
Opening Shift Note Assumed care of patient, awake and alert. No S/S of distress/SOB or pain. Patient saturation 98% at 3 LPM oxygen via nasal cannula. See interventions for complete assessment. Bed locked on low position, side rails up x2, bed alarms on at all times, call maradiaga within reach, instructed on POC and to call for assist PRN, will continue to monitor for changes Q1hr and PRN.
[2019-09-23] MEDS ORDERED: ADENOSINE 79 MG in GIVE UN-DILUTED 0 ML IV STA (08:18)
[2019-09-23] MEDS: METOPROLOL TARTRATE 25 MG TAB PO SCH ×2 (09:11→21:52)
[2019-09-23] MEDS: FERROUS SULFATE 325 MG TAB PO SCH ×3 (09:11→17:55)
[2019-09-23] MEDS: POTASSIUM CHL 20 Meq TABLET PO SCH (09:11)
[2019-09-23] MEDS: MULTIPLE VITAMIN TAB PO SCH (09:12)
[2019-09-23] MEDS: PANTOPRAZOLE 40 MG TAB PO SCH (09:12)
[2019-09-23] MEDS: ASCORBIC ACID 500 MG TAB PO SCH ×2 (09:12→21:52)
[2019-09-23] MEDS: methylPREDNISolone SOD SUCC 40 MG/ML VL IV SCH (09:13)
[2019-09-23] MEDS: FUROSEMIDE 100 MG/10ML VIAL IV SCH (09:13)
[2019-09-23] MEDS: MUPIROCIN 2% OINT 15gm or 22gm EACHNOSTRI SCH ×2 (09:13→21:51)
[2019-09-23] MEDS: VANCOMYCIN 1GM/250ML 250 ML IV SCH (09:14)
--- NOTE | 2019-09-23 10:41 | NUR ---
Dr Gomes at bedside, updated on patient's status. Informed of Dr Landry's recommendation to switch Aspirin to Eliquis and states "I'll look into it." Patient seen and examined. Will carry out new orders.
[2019-09-23] MEDS: ASPirin-EC 81 mg tab PO SCH (12:24)
[2019-09-23] MEDS ORDERED: LORazepam 2MG/ML-1ML VIAL IV ONE (12:30)
[2019-09-23] MEDS ORDERED: POTASSIUM CHL 20 Meq TABLET PO ONE (12:30)
--- NOTE | 2019-09-23 13:32 | NUR ---
EEG being done at bedside.
--- NOTE | 2019-09-23 13:45 | NUR ---
Patient pending Cardiolyte stress test. Per lead bi developer Digna, she spoke to court assistant Milvia and per Milvia we ran out of Cardiolyte and will do patient's procedure first thing in the morning.
--- NOTE | 2019-09-23 14:25 | NUR ---
EEG done at bedside.
--- NOTE | 2019-09-23 14:29 | NUR ---
Spoke to Neto regarding patient's Brain MRI and states "I would have to check patient first because he has a pacemaker"
--- NOTE | 2019-09-23 15:21 | NUR ---
EEG- ELECTROENCEPHALOGRAM COMPLETED ON 09/23/2019.
--- NOTE | 2019-09-23 15:26 | NUR ---
Received Social Service Consult to find a SNF bed for pt. Unfortuately [facility], [facility], [facility], [facility], [facility] and [facility] all stated no. Will continue to fax chart and follow up.
--- NOTE | 2019-09-23 15:37 | NUR ---
Spoke to Dr Gomes over the phone, updated on patient's status. Informed brain MRI cannot be done because patient had pacemaker placed less than 60 days ago and Cardiolyte stress test still pending because Nuclear Med ran out of Cardiolyte. verbalized understanding and states "Transfer patient to Telemetry if ok with Dr Landry." Paged Dr Landry, awaiting call back.
--- NOTE | 2019-09-23 16:15 | NUR ---
Dr Washington at bedside, updated on patient's status. Patient seen and examined. Will carry out new orders.
[2019-09-23] MEDS: OXYCODONE W/ ACETAMINOPHEN 5/325MG TABLET PO PRN (17:56)
--- NOTE | 2019-09-23 20:00 | NUR ---
SHIFT OPENING NOTE RECEIVED PATIENT AWAKE, ALERT AND ORIENTED X4. NO SOB OR DISTRESS NOTED. ON 2L NC. COMPLAINING 10/10 BACK PAIN. WILL MEDICATE WHEN DUE. CARLSON CATH DRAINING YELLOW URINE TO GRAVITY. ON SPECIALTY AIR MATTRESS. PHYSICAL ASSESSMENT COMPLETED, SEE INTERVENTIONS. INSTRUCTED ON POC AND TO CALL FOR ASSIST NEEDED. BED IS IN THE LOWEST POSITION WITH SIDE RAILS UP X2, CALL LIGHT IS WITHIN REACH.
--- NOTE | 2019-09-23 20:15 | NUR ---
BM PERICARE PERFORMED. NEW PADS PLACED UNDER PATIENT.
--- NOTE | 2019-09-23 21:15 | NUR ---
DR. LOPEZ AT BEDSIDE
[2019-09-23] MEDS: ATORVASTATIN 20 MG TAB PO SCH (21:51)
[2019-09-23] MEDS: APIXABAN 5 MG TAB PO SCH (21:51)
[2019-09-23] MEDS: MIRTAZAPINE 30 MG TAB PO SCH (22:35)
[2019-09-24] VITALS: BP 127/62
[2019-09-24] MEDS: PIPERACILLIN-TAZOB 3.375GM 100 ML IV SCH ×4 (00:09→17:59)
[2019-09-24] MEDS: HYDROmorphone HCL 2 MG/ML VL IV PRN ×5 (02:29→22:19)
[2019-09-24 04:00] VITALS: BP 144/63
[2019-09-24] MEDS: KETOROLAC TROMETH 15 mg/ml 1ML VL IV PRN ×2 (04:06→20:38)
--- NOTE | 2019-09-24 05:30 | NUR ---
MORNING HYGIENE CARE FULL BED BATH PERFORMED WITH WARM SOAPY WASH CLOTHES. GOWN CHANGED. FULL LINEN CHANGED. PATIENT REPOSITIONED FOR COMFORT. TOLERATED IT WELL.
[2019-09-24 05:39] LABS: Basophils # (auto) 0 10 ^3/uL (0-0.2); Basophils % (auto) 0.1 % (0.0-2.0); Eosinophils # (auto) 0.1 10 ^3/uL (0-0.8); Eosinophils % (auto) 1.1 % (0.0-7.0); Hematocrit 32.1 % (41.0-53.0); Lymphocytes # (auto) 0.9 10 ^3/uL (0.4-5.4); Lymphocytes % (auto) 12.6 % (10.0-50.0); Mean Corpuscular Hgb Conc. 34.1 g/dL (32.0-36.0); Mean Corpuscular Volume 96.8 fL (80.0-100.0); Monocytes # (auto) 0.4 10 ^3/uL (0-1.3); Monocytes % (auto) 5.7 % (0.0-12.0); Neutrophils # (auto) 5.9 10 ^3/uL (1.6-8.6); Neutrophils % (auto) 80.5 % (37.0-80.0); Platelet Count (auto) 95 10^3/uL (140-450); Red Blood Cells 3.32 10^6/uL (4.5-5.90); White Blood Cell 7.3 10^3/uL (4.4-10.8)
[2019-09-24 05:55] LABS: Calcium 8.2 mg/dL (8.5-10.1); Potassium 3.5 mmol/L (3.5-5.1)
[2019-09-24 05:57] LABS: BUN/Creatinine Ratio 35.8
[2019-09-24] MEDS: IPRATROPIUM BROM 0.5 MG/2.5ML INH SOL NEB SCH ×4 (06:54→22:57)
[2019-09-24] MEDS: ALBUTEROL SULF 2.5 MG/0.5ML(0.5%) NEB SOLN NEB SCH ×4 (06:54→22:57)
--- NOTE | 2019-09-24 07:10 | NUR ---
END OF SHIFT REPORT GIVEN AND CARE ENDORSED TO JOHNNY CONNOR.
[2019-09-24 08:00] VITALS: BP 116/58
--- NOTE | 2019-09-24 08:10 | NUR ---
Opening Shift Note Assumed care of patient, awake and alert, sitting up for having breakfast. No S/S of distress/SOB or chest pain noted. Instructed on POC and to call for assist PRN, will continue to monitor for changes Q1hr and PRN. Complaining of back pain, patient made aware that will give pain medication after patient finish his breakfast.
--- NOTE | 2019-09-24 08:45 | NUR ---
Pt requested PT tx "after lunch". Addendum: 09/24/19 at 1200 by David Wen BODYBUILDER Amended: Links added.
[2019-09-24] MEDS: VANCOMYCIN 1GM/250ML 250 ML IV SCH (08:58)
[2019-09-24] MEDS: MUPIROCIN 2% OINT 15gm or 22gm EACHNOSTRI SCH (08:59)
[2019-09-24] MEDS: FUROSEMIDE 100 MG/10ML VIAL IV SCH (09:00)
[2019-09-24] MEDS: ASCORBIC ACID 500 MG TAB PO SCH ×2 (09:00→22:51)
[2019-09-24] MEDS: methylPREDNISolone SOD SUCC 40 MG/ML VL IV SCH (09:00)
[2019-09-24] MEDS: FERROUS SULFATE 325 MG TAB PO SCH ×3 (09:01→18:27)
[2019-09-24] MEDS: METOPROLOL TARTRATE 25 MG TAB PO SCH ×2 (09:01→22:51)
[2019-09-24] MEDS: APIXABAN 5 MG TAB PO SCH ×2 (09:01→22:50)
[2019-09-24] MEDS: POTASSIUM CHL 20 Meq TABLET PO SCH (09:01)
[2019-09-24] MEDS: MULTIPLE VITAMIN TAB PO SCH (09:01)
[2019-09-24] MEDS: PANTOPRAZOLE 40 MG TAB PO SCH (09:02)
--- NOTE | 2019-09-24 09:20 | NUR ---
PT at the bedside, patient stated that would like to walk after Lunch because patient just got the Dilaudid for his pain management. PT will come back after Lunch.
[2019-09-24] MEDS: FOLIC ACID 1 MG in D5W 5% 50 ML IV SCH (10:17)
--- NOTE | 2019-09-24 11:26 | NUR ---
a the bedside, seen and examined patient at this time, plan of care discussed with patient, waiting for Cardiolite test, possible today. Plan down grade to Tele after Cardiolite and if Dr. Ramirez or Dr. Dunn agreed with the plan.
--- NOTE | 2019-09-24 11:29 | NUR ---
Called stress lab, will call back for estimate time.
[2019-09-24 11:45] VITALS: BP 124/60
--- NOTE | 2019-09-24 12:27 | NUR ---
ONCOLOGY PHYSICIAN AND TECH AT BEDSIDE TO TRANSPORT PATIENT FOR CARDIOLITE STRESS TEST. PATIENT CONNECTED TO PORTABLE INTERIOR SPECIALIST AND TRANSPORTED IN BED. VITALS STABLE AT TIME OF TRANSPORT
--- NOTE | 2019-09-24 13:00 | NUR ---
Patient came back from [facility].
--- NOTE | 2019-09-24 13:30 | NUR ---
Patient had Lunch around 60%, no N/V noted.
--- NOTE | 2019-09-24 13:45 | NUR ---
Nutrition Assessment Notes Pt wt is 91.8 kg today Pt appetite is good aeb 100% PO intake per RN doc. Pt with no noted distress per RN doc. Will continue to monitor and followup prn. Est energy needs: 2023-2667 kcals (25-30 kcal/kgBW) Est protein needs: 49-62 gms/day (0.8-1.0 gm/kgBW) Will continue to monitor and reassess prn. LABS: Na 134 L, Cl 97 L, BUN 34 H, Gluc 114 H, Tot Pro 6.1 L, Alb 2.1 L, Ca 8.2 L GI: Last BM noted on 09/24/19 per RN doc BS: 16 moderate risk, multiple scabs. Please refer to wound assessment report for full details. PES: Problem 1) Increased nutrient needs r/t pt impaired chewing ability aeb pt PO intake of 13% over two meals 2) Inadequate oral intake r/t pt limited access to food aeb pt is homeless 3) Altered nutrition related lab values r/t current medical condition aeb hypokal, elev RFT, hyperglyc, hypocalc, severe hypoalbuminemia, hypoproteinemia Comments 1) Continue to closely monitor pt PO intake to meet a goal of at least 75% of meals eaten 2) If pt appetite remains poor (<50% PO intake), consider additional nutrition support of Ensure High Protein 1 ctn TID 3) If albumin continues trending down with improved RFT, consider Prostat 1 pkt BID 3) Continue current plan of care
--- NOTE | 2019-09-24 14:00 | NUR ---
PT at the bedside, patient got up and stand at the bedside by using walker, patient stated that he has really bad pain at his wound on the buttock. Able to work with PT a little today.
--- NOTE | 2019-09-24 15:08 | NUR ---
After Dilaudid given for pain management, patient able to rest on the bed, no complaining of pain noted while resting, will continue to monitor and care. Tried room air O2 saturation 91%, on O2 NC back to 2 lpm.
[2019-09-24] MEDS ORDERED: POTASSIUM CHL 20 Meq TABLET PO ONE (15:15)
--- NOTE | 2019-09-24 15:25 | NUR ---
Paged Dr. Dunn regarding Cardiolite and plan to transfer to Tele.
--- NOTE | 2019-09-24 15:50 | NUR ---
Called and gave a report to Gayathri RYAN, patient will transfer to Room 248 B.
[2019-09-24 15:52] VITALS: BP 100/57
--- NOTE | 2019-09-24 16:05 | NUR ---
LIZZY pt transferred to floor COLTEN FORD transferred to 248B via hospital bed on surveillance system monitor (Tele # 3) and portable 02. All patient medications and personal belongings transferred with patient to receiving floor. Patient care transferred to Gayathri RYAN.
--- NOTE | 2019-09-24 16:15 | NUR ---
Received pt from balaji, vs stable, reports pain to whole body worse at the buttock area, rash present, patient oriented to room, call light in place will continue to monitor.
--- NOTE | 2019-09-24 19:15 | NUR ---
Opening Shift Note Assumed care of patient, awake and alert. No S/S of distress/SOB. POC discussed and questions answered. Bed is locked in lowest position with side rails up x2 for safety. Call light is within reach and patient encouraged to call for assistance PRN, will continue to monitor for changes Q1hr and PRN.
[2019-09-24 21:53] VITALS: BP 109/58
[2019-09-24] MEDS: ATORVASTATIN 20 MG TAB PO SCH (22:50)
[2019-09-24] MEDS: MIRTAZAPINE 30 MG TAB PO SCH (22:51)
[2019-09-25] MEDS: HYDROmorphone HCL 2 MG/ML VL IV PRN ×6 (02:24→22:33)
[2019-09-25] MEDS: VANCOMYCIN 1GM/250ML 250 ML IV SCH ×2 (03:10→21:10)
[2019-09-25 05:40] VITALS: BP 110/52
[2019-09-25] MEDS: PIPERACILLIN-TAZOB 3.375GM 100 ML IV SCH ×4 (06:29→17:35)
[2019-09-25] MEDS: ALBUTEROL SULF 2.5 MG/0.5ML(0.5%) NEB SOLN NEB SCH ×3 (06:54→18:27)
[2019-09-25] MEDS: IPRATROPIUM BROM 0.5 MG/2.5ML INH SOL NEB SCH ×3 (06:54→18:27)
--- NOTE | 2019-09-25 07:30 | NUR ---
Opening Shift Note Assumed care of patient, awake and alert. No S/S of distress/SOB, reports pain to whole body due to rash. Patient educated on turning q2 and as needed. Instructed on POC and to call for assist PRN, will continue to monitor for changes Q1hr and PRN.
[2019-09-25] MEDS: FERROUS SULFATE 325 MG TAB PO SCH ×3 (08:39→17:35)
[2019-09-25 09:00] VITALS: BP 108/59
[2019-09-25] MEDS: POTASSIUM CHL 20 Meq TABLET PO SCH (09:57)
[2019-09-25] MEDS: MULTIPLE VITAMIN TAB PO SCH (09:57)
[2019-09-25] MEDS: ASCORBIC ACID 500 MG TAB PO SCH ×2 (09:58→22:26)
[2019-09-25] MEDS: FUROSEMIDE 40 MG TAB PO SCH (09:58)
[2019-09-25] MEDS: METOPROLOL TARTRATE 25 MG TAB PO SCH ×2 (09:58→22:25)
[2019-09-25] MEDS: APIXABAN 5 MG TAB PO SCH ×2 (09:58→22:24)
[2019-09-25] MEDS: PANTOPRAZOLE 40 MG TAB PO SCH (09:59)
[2019-09-25] MEDS: FOLIC ACID 1 MG in D5W 5% 50 ML IV SCH (09:59)
--- NOTE | 2019-09-25 11:45 | NUR ---
WOUND CARE NOTE: WOUND CARE TEAM IN TO REASSESS PATIENT'S WOUNDS. PATIENT PRESENTED TO [facility] WITH MULTIPLE WOUNDS ON ARMS, LEGS, BACK, AND BUTTOCKS. 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 PATIENT HAS RESOLVING CLOSED BLISTERS TO BILATERAL FEET, LEGS, AND ARMS. PATIENT ALSO HAS RESOLVING CLOSED BLISTERS TO UPPER AND LOWER BACK. PATIENT HAS RESOLVING OPEN AND CLOSED BLISTERS TO LEFT AND RIGHT BUTTOCKS. BLISTERS TO BUTTOCKS VERY TENDER TO TOUCH. UPDATED PHOTOGRAPHS TAKEN. REMOVED XEROFORM DRESSINGS TO BILATERAL BUTTOCKS. NEW XEROFORM DRESSINGS APPLIED WITH ZGUARD BARRIER CREAM. RECOMMEND: DAILY/PRN DRESSING CHANGE PER MD ORDERS. CONTINUATION WITH ALL OTHER WOUND CARE ORDERS PREVIOUSLY PRESCRIBED BY MD. WOUND CARE TEAM TO CONTINUE TO MONITOR. Addendum: 09/25/19 at 1627 by JACINTA TODD RN RN Amended: Links added.
[2019-09-25] MEDS: OXYCODONE W/ ACETAMINOPHEN 5/325MG TABLET PO PRN ×3 (12:18→17:35)
--- NOTE | 2019-09-25 12:20 | NUR ---
Patient reports increased pain to rash on buttocks, percocet given for brake throught pain, will continue to monitor.
[2019-09-25] MEDS: KETOROLAC TROMETH 15 mg/ml 1ML VL IV PRN ×2 (12:33→20:45)
--- NOTE | 2019-09-25 12:35 | NUR ---
Wound care at bedside charging dressings, patient crying and yelling, a dose of tordal iv given for faster relief, wounds to buttock are red and weeping, will continue to monitor.
--- NOTE | 2019-09-25 12:49 | NUR ---
Wound care complete, patient reports feeling better, sitting up eating lunch, will continue to monitor.
[2019-09-25 13:00] VITALS: BP 105/54
[2019-09-25] MEDS ORDERED: POTASSIUM EFFERVESENT TAB 25 MEQ PO ONE (14:00)
[2019-09-25 17:00] VITALS: BP 110/62
[2019-09-25] MEDS: Ensure HIGH Protein Chocolate 8oz Bottle PO SCH (17:42)
[2019-09-25 21:35] VITALS: BP_SYST 100; BP_SYST 122; BP_DIAS 63; BP_DIAS 70
[2019-09-25] MEDS: ATORVASTATIN 20 MG TAB PO SCH (22:25)
[2019-09-25] MEDS: MIRTAZAPINE 30 MG TAB PO SCH (22:26)
[2019-09-26] MEDS: ALBUTEROL SULF 2.5 MG/0.5ML(0.5%) NEB SOLN NEB SCH ×4 (00:16→18:48)
[2019-09-26] MEDS: IPRATROPIUM BROM 0.5 MG/2.5ML INH SOL NEB SCH ×4 (00:16→18:48)
[2019-09-26] MEDS: PIPERACILLIN-TAZOB 3.375GM 100 ML IV SCH ×4 (00:27→17:45)
[2019-09-26] MEDS: HYDROmorphone HCL 2 MG/ML VL IV PRN ×4 (03:12→21:18)
[2019-09-26 05:00] VITALS: BP 98/56
[2019-09-26] MEDS: OXYCODONE W/ ACETAMINOPHEN 5/325MG TABLET PO PRN ×2 (06:07→12:53)
[2019-09-26 06:55] LABS: Basophils # (auto) 0 10 ^3/uL (0-0.2); Basophils % (auto) 0.5 % (0.0-2.0); Eosinophils # (auto) 0.2 10 ^3/uL (0-0.8); Eosinophils % (auto) 2.2 % (0.0-7.0); Hemoglobin 10.9 g/dL (13.5-17.5); Lymphocytes # (auto) 1.3 10 ^3/uL (0.4-5.4); Lymphocytes % (auto) 14.6 % (10.0-50.0); Mean Corpuscular Hemoglobin 32.9 pg (28.0-32.0); Mean Corpuscular Hgb Conc. 34.2 g/dL (32.0-36.0); Mean Corpuscular Volume 96.2 fL (80.0-100.0); Monocytes # (auto) 0.8 10 ^3/uL (0-1.3); Monocytes % (auto) 8.6 % (0.0-12.0); Neutrophils # (auto) 6.7 10 ^3/uL (1.6-8.6); Neutrophils % (auto) 74.1 % (37.0-80.0); Nucleated Red Blood Cells % 0.1 %; Platelet Count (auto) 162 10^3/uL (140-450); Red Blood Cells 3.33 10^6/uL (4.5-5.90); Red Cell Distribution Width 17.8 % (11.8-14.3)
[2019-09-26 07:15] LABS: Calcium 8.5 mg/dL (8.5-10.1); Potassium 3.5 mmol/L (3.5-5.1)
--- NOTE | 2019-09-26 07:34 | NUR ---
Opening Shift Note Assumed care of patient, awake and alert. No S/S of distress/SOB, reports pain to whole body rash. Instructed on POC and to call for assist PRN, will continue to monitor for changes Q1hr and PRN.
[2019-09-26 08:30] VITALS: BP 100/51
[2019-09-26] MEDS: FERROUS SULFATE 325 MG TAB PO SCH ×3 (09:44→17:47)
[2019-09-26] MEDS: Ensure HIGH Protein Chocolate 8oz Bottle PO SCH ×3 (09:44→17:48)
[2019-09-26] MEDS: POTASSIUM CHL 20 Meq TABLET PO SCH (09:45)
[2019-09-26] MEDS: FUROSEMIDE 40 MG TAB PO SCH (09:45)
[2019-09-26] MEDS: APIXABAN 5 MG TAB PO SCH ×2 (09:45→21:13)
[2019-09-26] MEDS: ASCORBIC ACID 500 MG TAB PO SCH ×2 (09:46→21:14)
[2019-09-26] MEDS: PANTOPRAZOLE 40 MG TAB PO SCH (09:46)
[2019-09-26] MEDS: MULTIPLE VITAMIN TAB PO SCH (09:46)
[2019-09-26] MEDS: METOPROLOL TARTRATE 25 MG TAB PO SCH ×2 (10:00→21:14)
[2019-09-26 12:32] VITALS: BP 115/58
[2019-09-26] MEDS: FOLIC ACID 1 MG in D5W 5% 50 ML IV SCH (16:38)
[2019-09-26] MEDS: VANCOMYCIN 1GM/250ML 250 ML IV SCH (16:38)
[2019-09-26 17:00] VITALS: BP 111/60
[2019-09-26 19:29] VITALS: BP 111/60
--- NOTE | 2019-09-26 19:47 | NUR ---
RECEIVED PT FROM DAY RN POC REVIEWED
[2019-09-26] MEDS: ATORVASTATIN 20 MG TAB PO SCH (21:13)
[2019-09-26] MEDS: MIRTAZAPINE 30 MG TAB PO SCH (21:14)
[2019-09-26] MEDS: MUPIROCIN 2% OINT 15gm or 22gm EACHNOSTRI SCH (21:19)
[2019-09-26 22:00] VITALS: BP 102/66
[2019-09-27] MEDS: ALBUTEROL SULF 2.5 MG/0.5ML(0.5%) NEB SOLN NEB SCH ×4 (00:10→18:59)
[2019-09-27] MEDS: IPRATROPIUM BROM 0.5 MG/2.5ML INH SOL NEB SCH ×4 (00:10→18:59)
--- NOTE | 2019-09-27 00:56 | NUR ---
awoke c/o discomfort 02/07 will medicate as ordered
[2019-09-27] MEDS: PIPERACILLIN-TAZOB 3.375GM 100 ML IV SCH ×4 (01:08→18:07)
[2019-09-27] MEDS: HYDROmorphone HCL 2 MG/ML VL IV PRN ×5 (01:30→20:01)
[2019-09-27 05:59] VITALS: BP 110/58
[2019-09-27 06:37] LABS: Basophils # (auto) 0 10 ^3/uL (0-0.2); Basophils % (auto) 0.4 % (0.0-2.0); Eosinophils # (auto) 0.2 10 ^3/uL (0-0.8); Eosinophils % (auto) 2.2 % (0.0-7.0); Hematocrit 29.6 % (41.0-53.0); Hemoglobin 10.1 g/dL (13.5-17.5); Lymphocytes # (auto) 1.3 10 ^3/uL (0.4-5.4); Lymphocytes % (auto) 15.7 % (10.0-50.0); Mean Corpuscular Hemoglobin 32.7 pg (28.0-32.0); Mean Corpuscular Volume 96.2 fL (80.0-100.0); Monocytes # (auto) 0.9 10 ^3/uL (0-1.3); Monocytes % (auto) 10.3 % (0.0-12.0); Neutrophils # (auto) 6.1 10 ^3/uL (1.6-8.6); Neutrophils % (auto) 71.4 % (37.0-80.0); Platelet Count (auto) 184 10^3/uL (140-450); Red Blood Cells 3.08 10^6/uL (4.5-5.90); Red Cell Distribution Width 17.9 % (11.8-14.3); White Blood Cell 8.6 10^3/uL (4.4-10.8)
--- NOTE | 2019-09-27 06:52 | NUR ---
report given to am nurse poc reviewed
[2019-09-27 07:07] LABS: BUN/Creatinine Ratio 27.4; Calcium 8.7 mg/dL (8.5-10.1); Potassium 3.4 mmol/L (3.5-5.1)
--- NOTE | 2019-09-27 07:30 | NUR ---
OPENING SHIFT NOTE Assumed care patient currently sleeping, easily arousable to voice. Patient on 3L O2 via NC, respirations even and unlabored, no s/s of distress or SOB noted. Bed in low position, locked, call light within reach, side rails x2 up. Kim patent, draining clear light lilly urine, hung below waist level. Patient updated on POC and to call for assistance as needed, patient verbalized understanding.
[2019-09-27] MEDS: Ensure HIGH Protein Chocolate 8oz Bottle PO SCH ×3 (08:00→18:07)
[2019-09-27 09:00] VITALS: BP 105/60
[2019-09-27] MEDS ORDERED: POTASSIUM EFFERVESENT TAB 25 MEQ PO ONE (09:45)
[2019-09-27] MEDS: POTASSIUM EFFERVESENT TAB 25 MEQ PO SCH (10:00)
[2019-09-27] MEDS: APIXABAN 5 MG TAB PO SCH ×2 (10:05→21:43)
[2019-09-27] MEDS: FERROUS SULFATE 325 MG TAB PO SCH ×3 (10:05→18:07)
[2019-09-27] MEDS: VANCOMYCIN 1GM/250ML 250 ML IV SCH ×2 (10:06→21:43)
[2019-09-27] MEDS: MUPIROCIN 2% OINT 15gm or 22gm EACHNOSTRI SCH ×2 (10:06→21:43)
[2019-09-27] MEDS: MULTIPLE VITAMIN TAB PO SCH (10:07)
[2019-09-27] MEDS: PANTOPRAZOLE 40 MG TAB PO SCH (10:07)
[2019-09-27] MEDS: ASCORBIC ACID 500 MG TAB PO SCH ×2 (10:07→21:44)
[2019-09-27] MEDS: METOPROLOL TARTRATE 25 MG TAB PO SCH ×2 (10:08→21:44)
[2019-09-27] MEDS: FUROSEMIDE 40 MG TAB PO SCH (10:09)
--- NOTE | 2019-09-27 11:00 | NUR ---
PAIN Patient complains of pain located in the buttock area. Patient refers pain do to the open blisters he has bilaterally on his buttock. Patient rating pain 9/10. Will give Dilaudid 0.5 mg IV as per doctors orders and continue to monitor.
[2019-09-27] MEDS: FOLIC ACID 1 MG in D5W 5% 50 ML IV SCH (11:28)
--- NOTE | 2019-09-27 11:36 | NUR ---
RE: Pain Upon re-assessment of pain level patient states pain level is at 8/10 and hasn't significantly improved. Patient educated that frequency of pain medication is Q4hr, patient verbalizes understanding. Will continue to monitor patients pain and continue care.
[2019-09-27 12:56] VITALS: BP 112/65
--- NOTE | 2019-09-27 15:30 | NUR ---
DRESSING CHANGE Dressing changed performed after joslyn-care. Bilateral buttock area cleansed from feces using soapy water, skin pat dry, thick layer of Z-guard lotion applied to raw skin, Xeroform Petrolatum gauze applied over z-guard, and left open to air.
--- NOTE | 2019-09-27 15:40 | NUR ---
PAIN Patient verbalizing pain 10/10 after dressing change/joslyn-care was performed. Patient visibly in pain, withdrawing from touch and SOB noted. Will medicate per MD orders.
--- NOTE | 2019-09-27 16:30 | NUR ---
RE: Pain Pain re-assessment patient verbalizes pain /10. Patient in bed in comfortable position no s/s of distress noted at this moment. will continue to monitor pain.
[2019-09-27 17:00] VITALS: BP 102/52
--- NOTE | 2019-09-27 18:48 | NUR ---
IV removal 20 G IV to left forearm leaking. IV DC'd with clean sterile technique, catheter fully intact. Pressure dressing applied to site. Patient tolerated well.
--- NOTE | 2019-09-27 19:30 | NUR ---
Opening Shift Note Assumed care of patient, awake and alert. No S/S of distress/SOB. Patient in pain 9/10 asking for PRN pain medication. Patient on speciality bed with adam draining to gravity. Instructed on POC and to call for assist PRN, will continue to monitor for changes Q1hr and PRN.
--- NOTE | 2019-09-27 20:05 | NUR ---
RE: Pain Reassessment! Im still in pain 02/07
[2019-09-27] MEDS: ATORVASTATIN 20 MG TAB PO SCH (21:43)
[2019-09-27] MEDS: MIRTAZAPINE 30 MG TAB PO SCH (21:44)
[2019-09-27 22:00] VITALS: BP 106/65
--- NOTE | 2019-09-28 00:05 | NUR ---
Patient in pain 9/10. Asking for pain medication. Will administer PRN pain medication
[2019-09-28] MEDS: PIPERACILLIN-TAZOB 3.375GM 100 ML IV SCH ×4 (00:10→17:32)
[2019-09-28] MEDS: HYDROmorphone HCL 2 MG/ML VL IV PRN ×5 (00:15→21:45)
[2019-09-28] MEDS: TEMAZEPAM 15 MG CAP PO PRN (00:22)
[2019-09-28] MEDS: ALBUTEROL SULF 2.5 MG/0.5ML(0.5%) NEB SOLN NEB SCH ×4 (00:47→18:56)
[2019-09-28] MEDS: IPRATROPIUM BROM 0.5 MG/2.5ML INH SOL NEB SCH ×4 (00:47→18:56)
--- NOTE | 2019-09-28 00:47 | NUR ---
RE: Pain Patient still in pain 01/07. waiting for next pain medication.
[2019-09-28 05:39] VITALS: BP 91/50
[2019-09-28 06:08] LABS: Basophils # (auto) 0 10 ^3/uL (0-0.2); Basophils % (auto) 0.6 % (0.0-2.0); Eosinophils # (auto) 0.2 10 ^3/uL (0-0.8); Hematocrit 28.8 % (41.0-53.0); Hemoglobin 9.9 g/dL (13.5-17.5); Lymphocytes % (auto) 11.3 % (10.0-50.0); Mean Corpuscular Hemoglobin 32.6 pg (28.0-32.0); Mean Corpuscular Hgb Conc. 34.2 g/dL (32.0-36.0); Mean Corpuscular Volume 95.3 fL (80.0-100.0); Monocytes # (auto) 0.9 10 ^3/uL (0-1.3); Monocytes % (auto) 10.8 % (0.0-12.0); Neutrophils # (auto) 6.6 10 ^3/uL (1.6-8.6); Neutrophils % (auto) 75.3 % (37.0-80.0); Platelet Count (auto) 173 10^3/uL (140-450); Red Blood Cells 3.02 10^6/uL (4.5-5.90); Red Cell Distribution Width 18.2 % (11.8-14.3); White Blood Cell 8.7 10^3/uL (4.4-10.8)
[2019-09-28 06:31] LABS: Calcium 8.5 mg/dL (8.5-10.1); Potassium 3.5 mmol/L (3.5-5.1)
--- NOTE | 2019-09-28 07:53 | NUR ---
Respiratory note: THERAPIST UNAVAILABLE FOR [address] [facility] [place]. WILL ASSESS PATIENT FOR ANY RESPIRATORY DISTRESS.
[2019-09-28] MEDS: FERROUS SULFATE 325 MG TAB PO SCH ×3 (08:00→17:33)
[2019-09-28] MEDS: Ensure HIGH Protein Chocolate 8oz Bottle PO SCH ×3 (08:00→18:00)
[2019-09-28] MEDS: APIXABAN 5 MG TAB PO SCH ×2 (09:01→21:40)
[2019-09-28] MEDS: FUROSEMIDE 40 MG TAB PO SCH (09:02)
[2019-09-28] MEDS: POTASSIUM EFFERVESENT TAB 25 MEQ PO SCH (09:02)
[2019-09-28] MEDS: METOPROLOL TARTRATE 25 MG TAB PO SCH ×2 (09:02→21:44)
[2019-09-28] MEDS: PANTOPRAZOLE 40 MG TAB PO SCH (09:03)
[2019-09-28] MEDS: ASCORBIC ACID 500 MG TAB PO SCH ×2 (09:03→21:45)
[2019-09-28] MEDS: MULTIPLE VITAMIN TAB PO SCH (09:03)
[2019-09-28 09:13] VITALS: BP 97/58
--- NOTE | 2019-09-28 09:20 | NUR ---
MD BEATTY AT BED SIDE DISCUSSIG POC WITH PATIENT. PATIENT VERBALIZES UNDERSTANDING.
[2019-09-28] MEDS: MUPIROCIN 2% OINT 15gm or 22gm EACHNOSTRI SCH ×2 (10:00→21:40)
[2019-09-28] MEDS: FOLIC ACID 1 MG in D5W 5% 50 ML IV SCH (10:00)
--- NOTE | 2019-09-28 10:00 | NUR ---
RE: Pain Pain re-assessment patient verbalizes pain 2/10. Patient in bed in comfortable position no s/s of distress noted at this moment. will continue to monitor pain.
--- NOTE | 2019-09-28 10:00 | NUR ---
DRESSING CHANGE DRESSING CHANGE TO SACRUM AND RIGHT AXILLA CHANGED PER ORDER. PATIENT TOLERATED WELL. WILL CONTINUE TO MONITOR.
[2019-09-28] MEDS: VANCOMYCIN 1GM/250ML 250 ML IV SCH ×2 (10:15→21:40)
--- NOTE | 2019-09-28 11:45 | NUR ---
Nutrition Assessment Notes Pt wt is 91.7 kg today Pt appetite is good aeb 85% PO intake per RN doc. Pt noted no distress, says he feels good, and had no complaints. Will continue to monitor and followup prn. Est energy needs: 8997-8724 kcals (25-30 kcal/kgBW) Est protein needs: 49-62 gms/day (0.8-1.0 gm/kgBW) Will continue to monitor and reassess prn. LABS: Tot Pro 6.1 L, Alb 2.1 L GI: Last BM noted on 09/27/19 per RN doc BS: 22 low risk, multiple scabs healing. Please refer to wound assessment report for full details. PES: Problem 1) Increased nutrient needs r/t pt impaired chewing ability aeb pt PO intake of 13% over two meals 2) Inadequate oral intake r/t pt limited access to food aeb pt is homeless 3) Altered nutrition related lab values r/t current medical condition aeb hypokal, elev RFT, hyperglyc, hypocalc, severe hypoalbuminemia, hypoproteinemia Comments 1) Continue to closely monitor pt PO intake to meet a goal of at least 75% of meals eaten 2) If pt appetite remains poor (<50% PO intake), consider additional nutrition support of Ensure High Protein 1 ctn TID 3) If albumin continues trending down with improved RFT, consider Prostat 1 pkt BID 3) Continue current plan of care
[2019-09-28 11:49] VITALS: BP 103/57
--- NOTE | 2019-09-28 13:00 | NUR ---
PAIN Patient complains of generalized pain. Patient rating pain 7/10. Will give Dilaudid 0.5 mg IV as per doctors orders and continue to monitor.
[2019-09-28 17:00] VITALS: BP 99/57
--- NOTE | 2019-09-28 17:32 | NUR ---
PAIN Patient complains of generalized pain. Patient rating pain 8/10. Will give Dilaudid 0.5 mg IV as per doctors orders and continue to monitor.
[2019-09-28 17:47] VITALS: BP 118/77
--- NOTE | 2019-09-28 18:30 | NUR ---
RE: Pain Pain re-assessment patient verbalizes pain 3/10. Patient in bed in comfortable position no s/s of distress noted at this moment. will continue to monitor pain
--- NOTE | 2019-09-28 19:20 | NUR ---
Opening Shift Note Assumed care of patient, awake and alert. No S/S of distress/SOB. Patient on speciality bed with adam draining to gravity. Instructed on POC and to call for assist PRN, will continue to monitor for changes Q1hr and PRN. .
[2019-09-28] MEDS: ATORVASTATIN 20 MG TAB PO SCH (21:40)
[2019-09-28] MEDS: MIRTAZAPINE 30 MG TAB PO SCH (21:45)
--- NOTE | 2019-09-28 21:45 | NUR ---
PAIN Patient complains of generalized pain. Patient rating pain 9/10. Will give Dilaudid 0.5 mg IV as per doctors orders and continue to monitor.
[2019-09-28 22:00] VITALS: BP 127/68
[2019-09-29] VITALS (7 sets, daily range): BP systolic 101–141; BP diastolic 53–100
[2019-09-29] MEDS: PIPERACILLIN-TAZOB 3.375GM 100 ML IV SCH ×2 (00:04→05:39)
[2019-09-29] MEDS: TEMAZEPAM 15 MG CAP PO PRN (00:04)
[2019-09-29] MEDS: ALBUTEROL SULF 2.5 MG/0.5ML(0.5%) NEB SOLN NEB SCH ×4 (00:20→18:26)
[2019-09-29] MEDS: IPRATROPIUM BROM 0.5 MG/2.5ML INH SOL NEB SCH ×4 (00:20→18:26)
--- NOTE | 2019-09-29 01:40 | NUR ---
Wound dressings change. Patient tolerated well with moderate pain.
--- NOTE | 2019-09-29 02:20 | NUR ---
IV removal IV DC'd with clean sterile technique, catheter fully intact. Pressure dressing applied to site. Patient tolerated well.
--- NOTE | 2019-09-29 02:30 | NUR ---
IV insertion IV access obtained, via clean sterile technique by inserting 22 gauge catheter at RFA after 2 attempts. IV secured properly. No trauma to site. Patient tolerated well.
[2019-09-29] MEDS: HYDROmorphone HCL 2 MG/ML VL IV PRN ×3 (02:34→10:31)
--- NOTE | 2019-09-29 02:34 | NUR ---
PAIN PATIENT VERBALIZES PAIN 9/10 ON BUTTOCKS, WILL ADMINISTER PAIN MEDICATION PRN.
--- NOTE | 2019-09-29 03:04 | NUR ---
RE PAIN Patient is currently sleeping, patient in no pain.
[2019-09-29 05:52] LABS: Basophils # (auto) 0.1 10 ^3/uL (0-0.2); Basophils % (auto) 0.7 % (0.0-2.0); Eosinophils # (auto) 0.1 10 ^3/uL (0-0.8); Eosinophils % (auto) 1.6 % (0.0-7.0); Hematocrit 27.7 % (41.0-53.0); Hemoglobin 9.7 g/dL (13.5-17.5); Lymphocytes % (auto) 13.2 % (10.0-50.0); Mean Corpuscular Volume 94.4 fL (80.0-100.0); Monocytes % (auto) 13.1 % (0.0-12.0); Neutrophils # (auto) 5.4 10 ^3/uL (1.6-8.6); Neutrophils % (auto) 71.4 % (37.0-80.0); Platelet Count (auto) 174 10^3/uL (140-450); Red Blood Cells 2.94 10^6/uL (4.5-5.90); White Blood Cell 7.6 10^3/uL (4.4-10.8)
[2019-09-29 06:10] LABS: Magnesium 1.8 mg/dL (1.6-2.6)
--- NOTE | 2019-09-29 06:35 | NUR ---
Pain Patient complained pain /10. Will administer pain medication prn.
[2019-09-29] MEDS: Ensure HIGH Protein Chocolate 8oz Bottle PO SCH ×3 (08:06→18:22)
[2019-09-29] MEDS: FERROUS SULFATE 325 MG TAB PO SCH ×3 (08:06→17:27)
[2019-09-29] MEDS ORDERED: POTASSIUM CHLORIDE 40 MEQ, LIDOCAINE 1% (LOCAL ANESTH.) 4 ML in SODIUM CHL 0.9% 100 ML IV ONE (08:15)
[2019-09-29] MEDS ORDERED: MAGNESIUM OXIDE 400 MG TAB PO ONE (08:15)
--- NOTE | 2019-09-29 09:20 | NUR ---
MD BEATTY AT BED SIDE DISCUSSING POC WITH PATIENT. PATIENT STATES UNDERSTANDING. PER MD TRIAL PATIENT ON NO OXYGEN AND MONITOR SPO2.
--- NOTE | 2019-09-29 09:22 | NUR ---
PATIENT OFF 02 PER DRS ORDER. WILL CLOSELY MONITOR.
[2019-09-29] MEDS: METOPROLOL TARTRATE 25 MG TAB PO SCH ×2 (10:00→21:58)
[2019-09-29] MEDS: PANTOPRAZOLE 40 MG TAB PO SCH (10:04)
[2019-09-29] MEDS: MULTIPLE VITAMIN TAB PO SCH (10:04)
[2019-09-29] MEDS: POTASSIUM EFFERVESENT TAB 25 MEQ PO SCH (10:04)
[2019-09-29] MEDS: APIXABAN 5 MG TAB PO SCH ×2 (10:05→21:57)
[2019-09-29] MEDS: ASCORBIC ACID 500 MG TAB PO SCH ×2 (10:05→21:59)
[2019-09-29] MEDS: FUROSEMIDE 20 MG TAB PO SCH (10:08)
[2019-09-29] MEDS: MUPIROCIN 2% OINT 15gm or 22gm EACHNOSTRI SCH ×2 (10:09→21:42)
[2019-09-29] MEDS: FOLIC ACID 1 MG in D5W 5% 50 ML IV SCH (10:30)
--- NOTE | 2019-09-29 10:30 | NUR ---
PAIN Patient complains of generalized pain. Patient rating pain 8/10. Will give Dilaudid 0.5 mg IV as per doctors orders and continue to monitor.
--- NOTE | 2019-09-29 10:40 | NUR ---
PATIENT AMBULATING WITH PHYSICAL THERAPY ON ROOM AIR. PATIENTS SPO2 SUSTAINED AT 92%. PATIENT TOLERATED WELL. NO FURTHER ACTIONS REQUIRED.
[2019-09-29] MEDS ORDERED: DOXYCYCLINE 100 MG TAB/CAP PO ONE (11:15)
[2019-09-29] MEDS ORDERED: MAGNESIUM SULFATE 1GM/100ML 100 ML IV ONE (11:15)
--- NOTE | 2019-09-29 13:57 | NUR ---
Covering patient for Cynthia RN No signs or symptoms of distress noted at this time. Patient instructed to call for assistance. Will continue to monitor Q1 hour and PRN.
[2019-09-29] MEDS: OXYCODONE W/ ACETAMINOPHEN 5/325MG TABLET PO PRN ×2 (13:58→20:44)
--- NOTE | 2019-09-29 13:58 | NUR ---
Pain Patient complains of pain to back and chest 8/10 and is requesting pain medications. Will administer medications per MD order. Will continue to monitor Q1 hour and PRN.
--- NOTE | 2019-09-29 14:10 | NUR ---
PT patient ambulating in hallway with physical therapy. Will continue to monitor Q1 hour and PRN.
--- NOTE | 2019-09-29 14:20 | NUR ---
D/C Planning Received a called from Bridgett with [facility] requesting d/c plan for patient. Advised Bridgett with [facility] doctor changed order for patient to go home with home health due to the fact that there is limited skill facilities with isolation beds. Bridgett advised me patient will not be able to received home health service if he will return to his converted [employer] unless he has a place to go to while he gets stable. Bridgett redirect me to ANNA Pinzon with [facility] to evaluate patient if he meets criteria to be place at [facility] where he will benefit from home health. However, Ablerta advised me patient does not meet criteria due to patient being (+ MRSA). Per Alberta she would like us to continue trying to find a facility that will accept patient. Informed SW II Elaine. Nurse was informed.
--- NOTE | 2019-09-29 14:58 | NUR ---
Pain reassessment Patient states pain is unrelieved, complains of back pain at 8/10. Patient repositioned for comfort. Will continue to monitor Q1 hour and PRN.
--- NOTE | 2019-09-29 15:52 | NUR ---
Received report from Cynthia RYAN Will continue to monitor Q1 hour and PRN.
--- NOTE | 2019-09-29 19:10 | NUR ---
Closing Note Report given to night manager RN. No signs or symptoms of distress noted at this time.
--- NOTE | 2019-09-29 19:30 | NUR ---
Opening Shift Note Report received from day shift RN. Assumed care of patient, awake and A&O x4. Kim in place draining to gravity and free of obstructions. No S/S of distress/SOB noted at this time. Patient complains of generalized body pain 8/10 on a numerical scale. Will medicate as ordered. Bed locked and left in the lowest position with side rails up x2. Instructed on POC and to call for assist PRN, will continue to monitor for changes Q1hr and PRN.
--- NOTE | 2019-09-29 20:44 | NUR ---
Pain Patient complains of generalized body pain 8/10 and is requesting pain medications. Will administer medications per MD order. Will continue to monitor Q1 hour and PRN.
--- NOTE | 2019-09-29 21:30 | NUR ---
Patient's wounds cleansed and dressings changed per MD's orders. Full linen change done. Patient tolerated well.
[2019-09-29] MEDS: ATORVASTATIN 20 MG TAB PO SCH (21:57)
[2019-09-29] MEDS: MIRTAZAPINE 30 MG TAB PO SCH (21:58)
[2019-09-29] MEDS: DOXYCYCLINE 100 MG TAB/CAP PO SCH (21:58)
--- NOTE | 2019-09-29 22:44 | NUR ---
Pain reassessment Patient states pain is unrelieved and continues to be 8/10. Patient repositioned for comfort and states new dressings provides some relief. Will continue to monitor Q1 hour and PRN.
[2019-09-30] MEDS: IPRATROPIUM BROM 0.5 MG/2.5ML INH SOL NEB SCH ×3 (00:03→12:45)
[2019-09-30] MEDS: ALBUTEROL SULF 2.5 MG/0.5ML(0.5%) NEB SOLN NEB SCH ×3 (00:03→12:45)
[2019-09-30] MEDS: OXYCODONE W/ ACETAMINOPHEN 5/325MG TABLET PO PRN ×3 (01:17→13:49)
--- NOTE | 2019-09-30 01:17 | NUR ---
Pain Patient complains of generalized body pain 10/10 and is requesting pain medications. Will administer medications per MD order. Will continue to monitor Q1 hour and PRN.
--- NOTE | 2019-09-30 02:17 | NUR ---
PAIN REASSESSMENT PATIENT SLEEPING COMFORTABLY IN BED.
[2019-09-30 04:57] VITALS: BP 108/56
[2019-09-30 06:33] LABS: Potassium 3.3 mmol/L (3.5-5.1)
--- NOTE | 2019-09-30 07:30 | NUR ---
Opening Note Received report from overnight cashier RN. Patient is awake, alert and oriented x4. No signs or symptoms of distress noted at this time. Patient complains of back pain 8/10 and is requesting pain medications. Will medicate per orders. Reviewed plan of care with patient, patient verbalized understanding. Bed in low and locked position, call light within reach. Will continue to monitor Q1 hour and PRN.
[2019-09-30 08:57] VITALS: BP 105/61
--- NOTE | 2019-09-30 09:12 | NUR ---
Dr. Gomes at bedside Discussing plan of care with patient and this RN. Patient to discharge home today with home health. Patient verbalized understanding. Will continue to monitor Q1 hour and PRN.
[2019-09-30] MEDS: MUPIROCIN 2% OINT 15gm or 22gm EACHNOSTRI SCH (09:25)
[2019-09-30] MEDS: Ensure HIGH Protein Chocolate 8oz Bottle PO SCH ×3 (09:25→17:37)
[2019-09-30] MEDS: APIXABAN 5 MG TAB PO SCH (09:25)
[2019-09-30] MEDS: FERROUS SULFATE 325 MG TAB PO SCH ×3 (09:25→17:36)
[2019-09-30] MEDS: PANTOPRAZOLE 40 MG TAB PO SCH (09:26)
[2019-09-30] MEDS: POTASSIUM EFFERVESENT TAB 25 MEQ PO SCH (09:26)
[2019-09-30] MEDS: FUROSEMIDE 20 MG TAB PO SCH (09:26)
[2019-09-30] MEDS: MULTIPLE VITAMIN TAB PO SCH (09:26)
[2019-09-30] MEDS: METOPROLOL TARTRATE 25 MG TAB PO SCH (09:26)
[2019-09-30] MEDS: ASCORBIC ACID 500 MG TAB PO SCH (09:27)
[2019-09-30] MEDS: DOXYCYCLINE 100 MG TAB/CAP PO SCH (09:27)
[2019-09-30] MEDS ORDERED: FOLIC ACID 1 MG TAB PO SCH (10:00)
--- NOTE | 2019-09-30 10:42 | NUR ---
PT Patient ambulating with physical therapy in hallway. Patient tolerated well. Will continue to monitor Q1 hour and PRN.
--- NOTE | 2019-09-30 10:58 | NUR ---
Pain Patient complains of back pain 02/07 and is requesting medications. Will medicate per orders. Will continue to monitor Q1 hour and PRN.
[2019-09-30] MEDS ORDERED: POTASSIUM CHL 20 Meq TABLET PO ONE (11:15)
[2019-09-30] MEDS ORDERED: MET25T PO (11:17)
[2019-09-30] MEDS ORDERED: SACC250C PO (11:17)
[2019-09-30] MEDS ORDERED: FER325T PO (11:17)
[2019-09-30] MEDS ORDERED: ATOR20TA50 PO (11:17)
[2019-09-30] MEDS ORDERED: DOXY-286 PO (11:17)
[2019-09-30] MEDS ORDERED: POTA1TAB61 PO (11:17)
[2019-09-30] MEDS ORDERED: APIX5TAB PO (11:17)
[2019-09-30] MEDS ORDERED: PANT40T PO (11:17)
[2019-09-30] MEDS ORDERED: FUR20T PO (11:17)
[2019-09-30] MEDS ORDERED: MULTTAB99 PO (11:30)
[2019-09-30] MEDS ORDERED: FOLI1TAB6 PO (11:30)
[2019-09-30 12:57] VITALS: BP 126/75
[2019-09-30 12:58] VITALS: BP 105/61
--- NOTE | 2019-09-30 14:30 | NUR ---
Spoke with Jodi from criminal justice social worker Patient is to be discharged home once oxygen is delivered to bedside. Patient updated on plan of care. Will continue to monitor Q1 hour and PRN.
--- NOTE | 2019-09-30 15:52 | NUR ---
D/C Planning Per consult regarding home health safety evaluation, physical therapy, medication management, vitals and wound care. MD Dr. Gomes advised me patient informed her he will be staying at a friends house until he is stable enough to return to his converted [employer] home. Spoke to patient via phone. Per patient he will be staying with his friend David in [facility] address: [address] [place] [address]. Faxed clinical information to [employer] [facility]. Per Rukhsana with [facility] Ph:) patient has been accepted and they will see patient within 24-48hrs upon d/c day. Faxed updated clinical information to [facility] requesting authorization for [facility] home health. Per Bridgett with [facility] authorization for home health is [id number]. Informed CONNOR Hooks. Per Second consult for home O2. Faxed Clinical information to requesting for oxygen to be deliver to bedside and [facility] requesting authorization for SG. Per Yissel with Ph:( [phone]) order was received and they follow up with a ETA. Advised Yissel to notify Nurse at ext. [phone] with ETA. Per [facility] with [facility] authorization for SG is [id number]. Informed CONNOR Hooks. Addendum: 09/30/19 at 1605 by NASEEM PRITCHETT Amended: Links added.
[2019-09-30 16:49] VITALS: BP 114/69
--- NOTE | 2019-09-30 18:11 | NUR ---
oxygen delivered to bedside
--- NOTE | 2019-09-30 18:13 | NUR ---
mrsa swab collected and sent to lab
--- NOTE | 2019-09-30 18:27 | NUR ---
discharge wound photos taken
--- NOTE | 2019-09-30 18:48 | NUR ---
Discharge Discharge instructions given as ordered. Encourage to follow up with PMD as instructed. All questions and concerns addressed. Patient verbalized understanding. Medication reconciliation form completed and copy given to patient. IV removed with catheter intact, pressure dressing applied, adam catheter removed. Telemetry unit returned to ICU. Patient taken to vehicle via wheelchair with all personal belongings, accompanied by staff and family member. No distress or symptoms of distress noted at this time.
== END 2019-09-30 18:47 | disposition home health service (06) | DRG 720 ==
LOC: ER 09:56 → TELE 09:57 → DOU IN ICU 23:55 → TELE-EAST 09-24 16:02
PROVIDERS: ADMIT Internal Medicine; ATTEND Internal Medicine
DX: A41.9 Sepsis, unspecified organism (principal); J96.01 Acute respiratory failure with hypoxia; I21.A1 Myocardial infarction type 2; E43 Unspecified severe protein-calorie malnutrition; G93.41 Metabolic encephalopathy; E87.4 Mixed disorder of acid-base balance; L89.152 Pressure ulcer of sacral region, stage 2; J18.9 Pneumonia, unspecified organism; I50.43 Acute on chronic combined systolic (congestive) and diastolic (congestive) heart failure; D68.69 Other thrombophilia; L51.1 Stevens-Johnson syndrome; D69.6 Thrombocytopenia, unspecified; I27.21 Secondary pulmonary arterial hypertension; L03.317 Cellulitis of buttock; N18.9 Chronic kidney disease, unspecified; I13.0 Hypertensive heart and chronic kidney disease with heart failure and stage 1 through stage 4 chronic kidney disease, or unspecified chronic kidney disease; K80.20 Calculus of gallbladder without cholecystitis without obstruction; R04.2 Hemoptysis; E66.9 Obesity, unspecified; E87.6 Hypokalemia; I48.0 Paroxysmal atrial fibrillation; J44.1 Chronic obstructive pulmonary disease with (acute) exacerbation; I65.22 Occlusion and stenosis of left carotid artery; J98.11 Atelectasis; E78.5 Hyperlipidemia, unspecified; K57.90 Diverticulosis of intestine, part unspecified, without perforation or abscess without bleeding; M48.061 Spinal stenosis, lumbar region without neurogenic claudication; L02.31 Cutaneous abscess of buttock; B95.62 Methicillin resistant Staphylococcus aureus infection as the cause of diseases classified elsewhere; G89.29 Other chronic pain; J44.0 Chronic obstructive pulmonary disease with (acute) lower respiratory infection; G47.00 Insomnia, unspecified; D64.9 Anemia, unspecified; F41.9 Anxiety disorder, unspecified; F32.9 Major depressive disorder, single episode, unspecified; E53.8 Deficiency of other specified B group vitamins; E83.42 Hypomagnesemia; L89.322 Pressure ulcer of left buttock, stage 2; L89.312 Pressure ulcer of right buttock, stage 2; Z68.27 Body mass index [BMI] 27.0-27.9, adult; Z59.0 Homelessness; Z79.899 Other long term (current) drug therapy; Z79.01 Long term (current) use of anticoagulants; Z95.810 Presence of automatic (implantable) cardiac defibrillator; Z98.1 Arthrodesis status; Z87.891 Personal history of nicotine dependence
CPT/HCPCS: 36415; 36600; 70450; 71045; 71275; 74176; 78452; 80048; 80053; 80061; 80202; 80307; 81001; 82550; 82565; 82607; 82746; 82805; 83036; 83540; 83550; 83605; 83735; 83880; 84132; 84443; 84484; 85014; 85018; 85025; 85379; 85610; 85652; 85730; 86704; 86706; 86708; 86803; 87040; 87070; 87081; 87340; 87804; 87880; 93005; 93017; 93306; 93886; 93970; 94640; 95819; 97110; 97116; 97163; 97530; 99291; G0378; J0153; J0696; J1956; J2001; J2405; J2543; J7060